=== PATIENT | male | born 1965 | race Two or more races ===

== ENCOUNTER 2023-01-24 09:58 | Inpatient (IN) | payer BC ==
[~2023-01-24] VITALS: Ht 167.6 cm; Wt 166.0 kg
[~2023-01-24 09:58] MED LIST: ASPI1TAB20 PO; ATOR10TA52 PO; LISI40TA11 PO; METF-370 PO; TRIA75TA66 PO
[2023-01-24 10:25] LABS: Basophils # (auto) 0.2 10 ^3/uL (0-0.2); Basophils % (auto) 1.1 % (0.0-2.0); Eosinophils # (auto) 0 10 ^3/uL (0-0.8); Eosinophils % (auto) 0.3 % (0.0-7.0); Hematocrit 47.1 % (41.0-53.0); Hemoglobin 15.6 g/dL (13.5-17.5); Lymphocytes # (auto) 2.4 10 ^3/uL (0.4-5.4); Lymphocytes % (auto) 14.2 % (10.0-50.0); Mean Corpuscular Hemoglobin 27.7 pg (28.0-32.0); Mean Corpuscular Hgb Conc. 33.1 g/dL (32.0-36.0); Mean Corpuscular Volume 83.6 fL (80.0-100.0); Monocytes # (auto) 0.6 10 ^3/uL (0-1.3); Monocytes % (auto) 3.7 % (0.0-12.0); Neutrophils # (auto) 13.4 10 ^3/uL (1.6-8.6); Neutrophils % (auto) 80.7 % (37.0-80.0); Nucleated Red Blood Cells % 0.2 %; Red Blood Cells 5.64 10^6/uL (4.5-5.90); Red Cell Distribution Width 14.1 % (11.8-14.3); White Blood Cell 16.6 10^3/uL (4.4-10.8)
[2023-01-24 10:41] LABS: Albumin 3.1 g/dL (3.4-5.0); Calcium 8.4 mg/dL (8.5-10.1); Potassium 3.5 mmol/L (3.5-5.1)
[2023-01-24 10:45] LABS: BUN/Creatinine Ratio 11.4 (10.0-20.0); Bilirubin, Total 0.2 mg/dL (0.2-1.0); Total Protein 8.1 g/dL (6.4-8.2)
[2023-01-24] MEDS ORDERED: SODIUM CHLORIDE 0.9% 1,000 ML IV ONE (11:30)
[2023-01-24] MEDS ORDERED: MORPHINE SULFATE 4 MG/ML SYR/VIAL IV ONE (11:30)
[2023-01-24] MEDS ORDERED: ONDANSETRON HCL 4 MG/2 ML VIAL IV ONE (11:30)
[2023-01-24] MEDS ORDERED: metroNIDAZOLE 500MG/100ML 100 ML IV ONE (11:45)
[2023-01-24] MEDS ORDERED: cefTRIAXone 1GM/50ML D5W 50 ML IV ONE (11:45)
[2023-01-24 12:15] LABS: Lactic Acid w/Reflex 2.2 mmol/L (0.4-2.0)
[2023-01-24] MEDS ORDERED: DEXTROSE (50%) 50ML SYRG IV PRN (14:15)
[2023-01-24] MEDS ORDERED: ACETAMINOPHEN 325 MG TAB PO PRN (14:15)
[2023-01-24] MEDS ORDERED: ONDANSETRON HCL 4 MG/2 ML VIAL IV PRN (14:15)
[2023-01-24] MEDS ORDERED: DOCUSATE SOD 100 MG CAP PO PRN (14:15)
[2023-01-24] MEDS ORDERED: NITROGLYCERIN 0.4 MG SL TAB SL PRN (14:15)
[2023-01-24] MEDS ORDERED: MORPHINE SULFATE INJ 2 MG/ml SYRG IV PRN (14:15)
[2023-01-24] MEDS: HYDROcodone-ACET 5/325MG TAB PO PRN ×2 (16:53→21:45)
[2023-01-24] MEDS: SODIUM CHLORIDE 0.9% 1,000 ML IV SCH (17:05)
[2023-01-24] MEDS: ACCU-CHEK COMFORT CURVE STRIP VI SCH ×2 (17:14→21:37)
[2023-01-24] MEDS: InsuLIN REG 1unit/0.01ml Soln (100units/ml) SC SCH ×2 (17:25→21:37)
[2023-01-24] MEDS: metroNIDAZOLE 500MG/100ML 100 ML IV SCH (21:43)
[2023-01-24] MEDS: ATORVASTATIN 20 MG TAB PO SCH (21:43)
[2023-01-25] VITALS (7 sets, daily range): BP systolic 126–161; BP diastolic 51–97
[2023-01-25] MEDS: metroNIDAZOLE 500MG/100ML 100 ML IV SCH ×3 (05:40→22:12)
[2023-01-25] MEDS: SODIUM CHLORIDE 0.9% 1,000 ML IV SCH ×2 (05:40→23:37)
[2023-01-25] MEDS: ACCU-CHEK COMFORT CURVE STRIP VI SCH ×6 (05:46→22:24)
[2023-01-25] MEDS: InsuLIN REG 1unit/0.01ml Soln (100units/ml) SC SCH ×4 (05:47→22:00)
[2023-01-25 05:48] LABS: Basophils # (auto) 0.1 10 ^3/uL (0-0.2); Basophils % (auto) 0.5 % (0.0-2.0); Eosinophils # (auto) 0.3 10 ^3/uL (0-0.8); Hematocrit 44.7 % (41.0-53.0); Hemoglobin 15.4 g/dL (13.5-17.5); Lymphocytes # (auto) 2.3 10 ^3/uL (0.4-5.4); Lymphocytes % (auto) 17.4 % (10.0-50.0); Mean Corpuscular Hemoglobin 28.7 pg (28.0-32.0); Mean Corpuscular Hgb Conc. 34.4 g/dL (32.0-36.0); Mean Corpuscular Volume 83.5 fL (80.0-100.0); Monocytes # (auto) 0.9 10 ^3/uL (0-1.3); Neutrophils # (auto) 9.6 10 ^3/uL (1.6-8.6); Neutrophils % (auto) 73.1 % (37.0-80.0); Nucleated Red Blood Cells % 0.3 %; Red Blood Cells 5.36 10^6/uL (4.5-5.90); Red Cell Distribution Width 14.3 % (11.8-14.3); White Blood Cell 13.2 10^3/uL (4.4-10.8)
[2023-01-25 06:31] LABS: Potassium 3.5 mmol/L (3.5-5.1)
[2023-01-25 06:40] LABS: Albumin 2.7 g/dL (3.4-5.0); BUN/Creatinine Ratio 11.9 (10.0-20.0); Bilirubin, Total 0.6 mg/dL (0.2-1.0); Calcium 8.2 mg/dL (8.5-10.1); Total Protein 7.2 g/dL (6.4-8.2)
[2023-01-25] MEDS: cefTRIAXone 1GM/50ML D5W 50 ML IV SCH (09:00)
[2023-01-25] MEDS: LISINOPRIL 20 MG TAB PO SCH (10:00)
[2023-01-25] MEDS: TRIAMTERENE/HCTZ 75/50MG TABLET PO SCH (10:00)
[2023-01-25] MEDS: PANTOPRAZOLE 40 MG/10 ML VIAL INJ IV SCH (10:11)
[2023-01-25] MEDS: ASPirin-EC 81 mg tab PO SCH (10:11)
[2023-01-25 15:42] LABS: INR 1.06 (0.9-1.15); Partial Thromboplastin Time 28.5 sec (24.6-33.4)
[2023-01-25] MEDS: ATORVASTATIN 20 MG TAB PO SCH (22:12)
[2023-01-26 00:43] VITALS: BP 157/82
[2023-01-26 05:00] VITALS: BP 144/60
[2023-01-26] MEDS: HYDROcodone-ACET 5/325MG TAB PO PRN (05:18)
[2023-01-26] MEDS: metroNIDAZOLE 500MG/100ML 100 ML IV SCH ×3 (05:18→21:31)
[2023-01-26] MEDS: ACCU-CHEK COMFORT CURVE STRIP VI SCH ×4 (05:20→21:19)
[2023-01-26] MEDS: InsuLIN REG 1unit/0.01ml Soln (100units/ml) SC SCH ×4 (05:21→21:20)
[2023-01-26 09:59] LABS: Hepatitis B Surface Antibody Negative (Negative)
[2023-01-26] MEDS: TRIAMTERENE/HCTZ 75/50MG TABLET PO SCH (10:00)
[2023-01-26] MEDS: cefTRIAXone 1GM/50ML D5W 50 ML IV SCH (10:04)
[2023-01-26] MEDS: PANTOPRAZOLE 40 MG/10 ML VIAL INJ IV SCH (10:04)
[2023-01-26 10:13] LABS: Hepatitis A Total Antibody Negative (Negative)
[2023-01-26 11:56] LABS: Hepatitis C Antibody Negative (Negative)
[2023-01-26] MEDS: ASPirin-EC 81 mg tab PO SCH (12:09)
[2023-01-26] MEDS: LISINOPRIL 20 MG TAB PO SCH (12:11)
[2023-01-26 13:00] VITALS: BP 115/60
[2023-01-26] MEDS: SODIUM CHLORIDE 0.9% 1,000 ML IV SCH (16:15)
[2023-01-26 17:00] VITALS: BP 114/58
[2023-01-26] MEDS ORDERED: MORPHINE SULFATE INJ 2 MG/ml SYRG IV ONE (21:15)
[2023-01-26] MEDS: ATORVASTATIN 20 MG TAB PO SCH (21:31)
[2023-01-26 21:51] VITALS: BP 120/60
[2023-01-27 02:34] LABS: Urine Bacteria NONE SEEN /hpf (None Seen); Urine Blood Negative /uL (Negative); Urine Hyaline Cast FEW /lpf (0 - 2); Urine Mucus FEW (None Seen); Urine Specific Gravity 1.026 (1.001-1.035); Urine WBC 2 /hpf (0 - 3)
[2023-01-27 05:00] VITALS: BP 103/47
[2023-01-27] MEDS: metroNIDAZOLE 500MG/100ML 100 ML IV SCH ×3 (05:14→20:36)
[2023-01-27] MEDS: ACCU-CHEK COMFORT CURVE STRIP VI SCH ×4 (06:12→22:13)
[2023-01-27] MEDS: InsuLIN REG 1unit/0.01ml Soln (100units/ml) SC SCH ×4 (06:12→22:00)
[2023-01-27] MEDS: SODIUM CHLORIDE 0.9% 1,000 ML IV SCH (08:55)
[2023-01-27 09:00] VITALS: BP 125/75
[2023-01-27] MEDS: ASPirin-EC 81 mg tab PO SCH (10:02)
[2023-01-27] MEDS: LISINOPRIL 20 MG TAB PO SCH (10:03)
[2023-01-27] MEDS: TRIAMTERENE/HCTZ 75/50MG TABLET PO SCH (10:39)
[2023-01-27] MEDS: cefTRIAXone 1GM/50ML D5W 50 ML IV SCH (10:58)
[2023-01-27] MEDS: PANTOPRAZOLE 40 MG/10 ML VIAL INJ IV SCH (10:59)
[2023-01-27 13:00] VITALS: BP 135/70
[2023-01-27 17:00] VITALS: BP 144/65
[2023-01-27] MEDS: ATORVASTATIN 20 MG TAB PO SCH (20:36)
[2023-01-27 22:00] VITALS: BP 115/64
[2023-01-28] MEDS: SODIUM CHLORIDE 0.9% 1,000 ML IV SCH ×3 (02:10→20:30)
[2023-01-28 05:00] VITALS: BP 117/73
[2023-01-28] MEDS: metroNIDAZOLE 500MG/100ML 100 ML IV SCH ×3 (05:31→22:19)
[2023-01-28] MEDS: ACCU-CHEK COMFORT CURVE STRIP VI SCH ×4 (05:52→22:09)
[2023-01-28] MEDS: InsuLIN REG 1unit/0.01ml Soln (100units/ml) SC SCH ×4 (05:52→22:14)
[2023-01-28 06:39] LABS: BUN/Creatinine Ratio 19.7 (10.0-20.0); Potassium 3.5 mmol/L (3.5-5.1)
[2023-01-28 06:46] LABS: Basophils # (auto) 0.1 10 ^3/uL (0-0.2); Basophils % (auto) 0.7 % (0.0-2.0); Eosinophils # (auto) 0.3 10 ^3/uL (0-0.8); Eosinophils % (auto) 2.3 % (0.0-7.0); Hematocrit 46.5 % (41.0-53.0); Hemoglobin 15.5 g/dL (13.5-17.5); Lymphocytes # (auto) 3.2 10 ^3/uL (0.4-5.4); Lymphocytes % (auto) 26.5 % (10.0-50.0); Mean Corpuscular Hemoglobin 28.6 pg (28.0-32.0); Mean Corpuscular Hgb Conc. 33.3 g/dL (32.0-36.0); Mean Corpuscular Volume 85.7 fL (80.0-100.0); Neutrophils # (auto) 7.5 10 ^3/uL (1.6-8.6); Neutrophils % (auto) 62.5 % (37.0-80.0); Nucleated Red Blood Cells % 0.7 %; Red Blood Cells 5.43 10^6/uL (4.5-5.90); Red Cell Distribution Width 14.5 % (11.8-14.3)
[2023-01-28 07:07] LABS: INR 1.16 (0.9-1.15); Partial Thromboplastin Time 29.9 sec (24.6-33.4)
[2023-01-28 08:30] VITALS: BP 132/70
[2023-01-28] MEDS: LISINOPRIL 20 MG TAB PO SCH (08:50)
[2023-01-28] MEDS: PANTOPRAZOLE 40 MG/10 ML VIAL INJ IV SCH (08:50)
[2023-01-28] MEDS: cefTRIAXone 1GM/50ML D5W 50 ML IV SCH (08:51)
[2023-01-28] MEDS: TRIAMTERENE/HCTZ 75/50MG TABLET PO SCH (08:51)
[2023-01-28] MEDS ORDERED: BUPIVACAINE 0.25% INJ 50ML VIAL ONE (09:12)
[2023-01-28] MEDS ORDERED: LIDOCAINE W/ EPINEPHRINE 1% 20ML VIAL ONE (09:12)
[2023-01-28] MEDS ORDERED: GLYCOPYRROLATE 0.2 MG/ML 1ML VIAL ONE (09:47)
[2023-01-28] MEDS ORDERED: fentaNYL CITRATE 100 MCG/2 ML VL ONE (09:47)
[2023-01-28] MEDS ORDERED: SODIUM CHLORIDE LOCK 10 ML ONE (09:47)
[2023-01-28] MEDS ORDERED: NEOSTIGMINE 1 MG/ML INJ (10mg/10ML VIAL) ONE (09:47)
[2023-01-28] MEDS ORDERED: PROPOFOL 10 MG/ML 20 ML IV ONE (09:47)
[2023-01-28] MEDS ORDERED: ROCURONIUM 10MG/ML 10ML VIAL IV ONE (09:47)
[2023-01-28] MEDS ORDERED: MIDAZOLAM HCL 2MG/2ML 2ml VIAL (1mg/ml) ONE (09:47)
[2023-01-28] MEDS ORDERED: DexAMETHasone SOD PHOS 10MG/1ML VIAL INJ ONE (09:47)
[2023-01-28] MEDS: ASPirin-EC 81 mg tab PO SCH (10:00)
[2023-01-28] MEDS ORDERED: SUGAMMADEX 200mg/2ml Vial (100MG/ML) IV ONE (10:48)
[2023-01-28] MEDS ORDERED: BACITRACIN TOP OINT 1 UD PKG TOP ONE (10:49)
[2023-01-28] MEDS: HYDROcodone-ACET 5/325MG TAB PO PRN (11:23)
[2023-01-28] MEDS ORDERED: MORPHINE SULFATE INJ 2 MG/ml SYRG IV ONE (11:31)
[2023-01-28] MEDS ORDERED: SUCCINYLCHOLINE CHLORIDE 20 MG/ML 10ML VIAL IV ONE (11:34)
[2023-01-28 16:50] VITALS: BP 84/29
[2023-01-28 21:15] LABS: Hematocrit 43.2 % (41.0-53.0); Hemoglobin 14.1 g/dL (13.5-17.5)
[2023-01-28 22:00] VITALS: BP 96/61
[2023-01-28] MEDS: ATORVASTATIN 20 MG TAB PO SCH (22:18)
[2023-01-28 23:00] VITALS: BP 97/59
[2023-01-29] VITALS: BP 95/50
[2023-01-29 05:00] VITALS: BP 109/68
[2023-01-29] MEDS: ACCU-CHEK COMFORT CURVE STRIP VI SCH ×4 (06:00→22:00)
[2023-01-29] MEDS: metroNIDAZOLE 500MG/100ML 100 ML IV SCH ×3 (06:00→22:00)
[2023-01-29] MEDS: InsuLIN REG 1unit/0.01ml Soln (100units/ml) SC SCH ×4 (06:02→22:00)
[2023-01-29 07:01] LABS: Hematocrit 37.8 % (41.0-53.0); Hemoglobin 12.8 g/dL (13.5-17.5); Mean Corpuscular Volume 85.3 fL (80.0-100.0); Red Blood Cells 4.43 10^6/uL (4.5-5.90); Red Cell Distribution Width 14.4 % (11.8-14.3); White Blood Cell 17.3 10^3/uL (4.4-10.8)
[2023-01-29 07:32] LABS: Basophils % (manual) 0 (0.0-2.0); Blast Cells 0; Eosinophils % (manual) 0 (0-7); Metamyelocytes % 0; Myelocytes % 0; Promyelocytes % 0; Reactive Lymphocytes 0
[2023-01-29 08:46] LABS: Band Neutrophils % (manual) 10; Lymphocytes % (manual) 22 (10.0-50.0); Monocytes % (manual) 7 (0-12)
[2023-01-29 09:00] VITALS: BP 92/52
[2023-01-29] MEDS: cefTRIAXone 1GM/50ML D5W 50 ML IV SCH ×2 (09:30→11:34)
[2023-01-29] MEDS ORDERED: ENOXAPARIN SOD 30 MG/0.3 ML SYRINGE SC SCH (10:00)
[2023-01-29] MEDS: LISINOPRIL 20 MG TAB PO SCH (10:00)
[2023-01-29] MEDS: TRIAMTERENE/HCTZ 75/50MG TABLET PO SCH (10:00)
[2023-01-29] MEDS: SODIUM CHLORIDE 0.9% 1,000 ML IV SCH ×2 (10:30→23:50)
[2023-01-29] MEDS ORDERED: SODIUM CHLORIDE 0.9% 1,000 ML IV ONE (10:30)
[2023-01-29] MEDS ORDERED: TAMSULOSIN HYDROCHLORIDE 0.4 MG CAP PO ONE (10:30)
[2023-01-29] MEDS: TAMSULOSIN HYDROCHLORIDE 0.4 MG CAP PO SCH (10:48)
[2023-01-29] MEDS: PANTOPRAZOLE 40 MG/10 ML VIAL INJ IV SCH (11:31)
[2023-01-29] MEDS: ASPirin-EC 81 mg tab PO SCH (11:33)
[2023-01-29 14:24] VITALS: BP 90/41
[2023-01-29 16:56] VITALS: BP 90/49
[2023-01-29 22:00] VITALS: BP 95/34
[2023-01-29] MEDS: ATORVASTATIN 20 MG TAB PO SCH (22:00)
[2023-01-30 05:44] VITALS: BP 118/83
[2023-01-30] MEDS: metroNIDAZOLE 500MG/100ML 100 ML IV SCH ×3 (06:00→22:15)
[2023-01-30 06:25] LABS: Basophils # (auto) 0.1 10 ^3/uL (0-0.2); Basophils % (auto) 0.6 % (0.0-2.0); Eosinophils # (auto) 0.1 10 ^3/uL (0-0.8); Eosinophils % (auto) 0.7 % (0.0-7.0); Hematocrit 35.1 % (41.0-53.0); Hemoglobin 11.6 g/dL (13.5-17.5); Lymphocytes # (auto) 2.7 10 ^3/uL (0.4-5.4); Lymphocytes % (auto) 20.7 % (10.0-50.0); Mean Corpuscular Hemoglobin 28.9 pg (28.0-32.0); Mean Corpuscular Hgb Conc. 32.9 g/dL (32.0-36.0); Mean Corpuscular Volume 87.6 fL (80.0-100.0); Monocytes # (auto) 1.2 10 ^3/uL (0-1.3); Monocytes % (auto) 9.1 % (0.0-12.0); Neutrophils # (auto) 8.8 10 ^3/uL (1.6-8.6); Neutrophils % (auto) 68.9 % (37.0-80.0); Nucleated Red Blood Cells % 0.1 %; Red Cell Distribution Width 14.8 % (11.8-14.3); White Blood Cell 12.8 10^3/uL (4.4-10.8)
[2023-01-30] MEDS: InsuLIN REG 1unit/0.01ml Soln (100units/ml) SC SCH ×4 (06:26→22:00)
[2023-01-30] MEDS: SODIUM CHLORIDE 0.9% 1,000 ML IV SCH ×3 (06:30→18:08)
[2023-01-30 06:38] LABS: Potassium 3.4 mmol/L (3.5-5.1)
[2023-01-30] MEDS: ACCU-CHEK COMFORT CURVE STRIP VI SCH ×4 (07:00→22:22)
[2023-01-30 07:01] LABS: Albumin 2.6 g/dL (3.4-5.0); BUN/Creatinine Ratio 15.2 (10.0-20.0); Bilirubin, Total 0.4 mg/dL (0.2-1.0); Calcium 8.2 mg/dL (8.5-10.1); Total Protein 6.7 g/dL (6.4-8.2)
[2023-01-30 09:00] VITALS: BP 115/70
[2023-01-30] MEDS: ASPirin-EC 81 mg tab PO SCH (09:58)
[2023-01-30] MEDS: ENOXAPARIN SOD 40 MG/0.4 ML SYRINGE SC SCH (09:59)
[2023-01-30] MEDS: PANTOPRAZOLE 40 MG/10 ML VIAL INJ IV SCH (09:59)
[2023-01-30] MEDS: LISINOPRIL 20 MG TAB PO SCH (10:00)
[2023-01-30] MEDS: TRIAMTERENE/HCTZ 75/50MG TABLET PO SCH (10:00)
[2023-01-30] MEDS: cefTRIAXone 1GM/50ML D5W 50 ML IV SCH (10:00)
[2023-01-30] MEDS: SODIUM BICARBONATE 50ML VIAL 50 ML in SOD CHL 0.45% 1,000 ML IV SCH ×2 (12:11→18:30)
[2023-01-30 13:00] VITALS: BP 117/74
[2023-01-30] MEDS: HYDROcodone-ACET 5/325MG TAB PO PRN (13:48)
[2023-01-30 16:43] VITALS: BP 101/50
[2023-01-30 17:14] LABS: Creatinine, Urine 236 mg/dL (30.0-125.0); Sodium Urine 86 mmol/L (40-220)
[2023-01-30 17:15] LABS: Urine Bacteria NONE SEEN /hpf (None Seen); Urine Blood TRACE /uL (Negative); Urine Mucus FEW (None Seen); Urine Specific Gravity 1.021 (1.001-1.035); Urine WBC 4 /hpf (0 - 3)
[2023-01-30 17:16] LABS: Protein, Urine 49.5 mg/dL (0.0-11.9)
[2023-01-30] MEDS ORDERED: POTASSIUM CHL 20 Meq TABLET PO ONE (18:00)
[2023-01-30] MEDS: TAMSULOSIN HYDROCHLORIDE 0.4 MG CAP PO SCH (18:07)
[2023-01-30 22:00] VITALS: BP 100/58
[2023-01-30] MEDS: ATORVASTATIN 20 MG TAB PO SCH (22:15)
[2023-01-31] MEDS: SODIUM BICARBONATE 50ML VIAL 50 ML in SOD CHL 0.45% 1,000 ML IV SCH ×2 (02:01→08:30)
[2023-01-31] MEDS: SODIUM CHLORIDE 0.9% 1,000 ML IV SCH ×2 (02:30→10:22)
[2023-01-31 05:00] VITALS: BP 110/90
[2023-01-31] MEDS: metroNIDAZOLE 500MG/100ML 100 ML IV SCH ×2 (05:30→13:30)
[2023-01-31] MEDS: InsuLIN REG 1unit/0.01ml Soln (100units/ml) SC SCH ×2 (06:23→11:30)
[2023-01-31] MEDS: ACCU-CHEK COMFORT CURVE STRIP VI SCH ×2 (06:24→11:30)
[2023-01-31 07:23] LABS: Basophils # (auto) 0.1 10 ^3/uL (0-0.2); Basophils % (auto) 0.5 % (0.0-2.0); Eosinophils # (auto) 0.2 10 ^3/uL (0-0.8); Eosinophils % (auto) 1.7 % (0.0-7.0); Lymphocytes # (auto) 2.3 10 ^3/uL (0.4-5.4); Lymphocytes % (auto) 24.4 % (10.0-50.0); Mean Corpuscular Hemoglobin 28.2 pg (28.0-32.0); Mean Corpuscular Hgb Conc. 34.2 g/dL (32.0-36.0); Mean Corpuscular Volume 82.3 fL (80.0-100.0); Monocytes # (auto) 0.8 10 ^3/uL (0-1.3); Monocytes % (auto) 8.2 % (0.0-12.0); Neutrophils % (auto) 65.2 % (37.0-80.0); Nucleated Red Blood Cells % 0.1 %; Red Blood Cells 4.25 10^6/uL (4.5-5.90); Red Cell Distribution Width 14.3 % (11.8-14.3); White Blood Cell 9.3 10^3/uL (4.4-10.8)
[2023-01-31 07:45] LABS: Albumin 2.3 g/dL (3.4-5.0); Potassium 3.6 mmol/L (3.5-5.1)
[2023-01-31 07:48] LABS: BUN/Creatinine Ratio 18.6 (10.0-20.0); Bilirubin, Total 0.3 mg/dL (0.2-1.0); Total Protein 6.2 g/dL (6.4-8.2)
[2023-01-31 08:00] VITALS: BP 113/59
[2023-01-31 08:50] VITALS: BP 113/59
[2023-01-31] MEDS ORDERED: METR500T PO (10:00)
[2023-01-31] MEDS ORDERED: LEVO750T8 PO (10:00)
[2023-01-31] MEDS ORDERED: HYDR-4902 PO (10:00)
[2023-01-31] MEDS: PANTOPRAZOLE 40 MG/10 ML VIAL INJ IV SCH (10:02)
[2023-01-31] MEDS: ENOXAPARIN SOD 40 MG/0.4 ML SYRINGE SC SCH (10:03)
[2023-01-31] MEDS: cefTRIAXone 1GM/50ML D5W 50 ML IV SCH (10:04)
[2023-01-31] MEDS: ASPirin-EC 81 mg tab PO SCH (10:04)
[2023-01-31 12:02] VITALS: BP 113/59
[2023-01-31] MEDS ORDERED: POTASSIUM CHL 20MEQ/100ML 100 ML IV SCH (12:30)
[2023-01-31 13:08] VITALS: BP 125/56
== END 2023-01-31 15:00 | disposition home or self-care (01) | DRG 417 ==
LOC: ER 09:58 → TELE 14:10 → TELE-WESTW 23:03
PROVIDERS: ADMIT Nurse Practitioner Family; ATTEND Family Medicine
PROC: 5A09357 Assistance with Respiratory Ventilation, Less than 24 Consecutive Hours, Continuous Positive Airway Pressure (ICD-10-PCS; 2023-01-25)
PROC: 0FT44ZZ Resection of Gallbladder, Percutaneous Endoscopic Approach (ICD-10-PCS; principal; 2023-01-28 09:59)
DX: K80.13 Calculus of gallbladder with acute and chronic cholecystitis with obstruction (principal); J96.01 Acute respiratory failure with hypoxia; E44.1 Mild protein-calorie malnutrition; Z68.43 Body mass index [BMI] 50.0-59.9, adult; E87.20 Acidosis, unspecified; N17.9 Acute kidney failure, unspecified; E11.9 Type 2 diabetes mellitus without complications; E66.01 Morbid (severe) obesity due to excess calories; I10 Essential (primary) hypertension; K59.00 Constipation, unspecified; K76.0 Fatty (change of) liver, not elsewhere classified; K76.89 Other specified diseases of liver; D64.9 Anemia, unspecified; J44.9 Chronic obstructive pulmonary disease, unspecified; N40.0 Benign prostatic hyperplasia without lower urinary tract symptoms; N99.0 Postprocedural (acute) (chronic) kidney failure; Z20.822 Contact with and (suspected) exposure to COVID-19; E78.5 Hyperlipidemia, unspecified; N20.0 Calculus of kidney; Z79.82 Long term (current) use of aspirin; Z79.899 Other long term (current) drug therapy; Z82.49 Family history of ischemic heart disease and other diseases of the circulatory system; Z87.442 Personal history of urinary calculi
CPT/HCPCS: 36415; 71045; 71250; 74176; 76705; 76775; 78226; 78582; 80048; 80053; 81001; 82105; 82150; 82247; 82306; 82378; 82570; 82962; 83605; 83690; 83970; 84100; 84156; 84300; 84484; 85007; 85014; 85018; 85025; 85027; 85610; 85730; 86301; 86704; 86706; 86708; 86803; 86850; 86900; 86901; 87040; 87340; 87426; 93005; 93306; 93970; 94660; 96365; 96367; 96375; 97163; C9113; G0378; J0330; J0696; J1100; J1815; J2250; J2405; J2704; J3490

== ENCOUNTER 2025-04-11 00:47 | Inpatient (IN) | payer BC ==
[~2025-04-11] VITALS: Ht 167.6 cm; Wt 151.7 kg
[2025-04-11] VITALS (7 sets, daily range): BP systolic 106–162; BP diastolic 56–74; PULSE 83–106; RESP 18; TEMP 96.1–99.3; O2SAT 94–97
[~2025-04-11 00:47] MED LIST changes: +HYDR-4902 PO; +LEVO750T8 PO; -LISI40TA11 PO; +LISI40TA16 PO; +METR500T PO
--- NOTE | 2025-04-11 01:28 | ED.PDOC ---
History of Present Illness HPI Comments 59-year-old morbidly obese male presents with complaint of urinary urgency, hematuria, and dysuria. Patient reports onset of symptoms at around 2100, last night. He states on, first, having urge to urinate and noticing small droplets of blood, initially. Patient then endorses on he a stream of dark urine and then bright red blood with associated dysuria during 2nd and 3rd time going to the bathroom. He reports history of UTIs, kidney stones, BPH, hypertension, and diabetes. Patient denies having any additional urinary symptoms, abdominal pain, nausea, vomiting, fever, chills, lightheadedness, or further associated symptoms. Chief Complaint: Urinary Time Seen by MD: 01:20 Primary Care Provider: NONE Reviewed Notes: Nurses Notes, Medications, Allergies Allergies: Coded Allergies: NO KNOWN ALLERGIES (Unverified , 01/24/23) Home Meds Active Scripts Hydrocodone-Acetaminophen (Hydrocodone Bitartrate/AC 5-325 mg) 1 Tab Tab, 1 TAB PO TID PRN, #20 TAB Prov:SABINE BECERRA MD 01/31/23 Metronidazole (Flagyl) 500 Mg Tab, 500 MG PO TID, #30 TAB Prov:SABINE BECERRA MD 01/31/23 Levofloxacin (Levaquin 750 mg) 750 Mg Tab, 1 TAB PO DAILY, #10 TAB Prov:SABINE BECERRA MD 01/31/23 Reported Medications Aspirin (Aspir-81) 81 Mg Tab, 81 MG PO DAILY, TAB 08/24/15 Hydrochlorothiazide W/Triamter (Triamterene/Hydrochloroth) 1 Tab Tab, 1 TAB PO DAILY, TAB 08/24/15 Metformin Hydrochloride (Metformin Hcl) 500 Mg Tab, 500 MG PO BID, TAB 08/24/15 Lisinopril (Lisinopril) 40 Mg Tab, 40 MG PO DAILY for me, TAB 08/24/15 Atorvastatin Calcium (ATORVASTATIN CALCIUM) 10 Mg Tab, 10 MG PO HS, TAB 08/24/15 Information Source: Patient Mode of Arrival: Ambulatory Severity: Moderate Timing: Hours Duration: Since onset Prehospital treatment: None Past Medical History PAST MEDICAL HISTORY: DM, HTN, Kidney Stones, UTI'S Past Medical History (Other): BPH Morbid obesity Surgical History: Cholecystectomy Family History Family History: Reviewed,noncontributory to illness Social History Smoker: Non-Smoker Alcohol: Denies ETOH Use Drugs: Denies Drug Use Lives In: Home All Other Systems: Reviewed and Negative (Comprehensive systems review obtained and negative except for what is stated in the HPI.) Physical Exam General Appearance: No Apparent Distress, Obese HEENT: Normal ENT Inspection, Pharynx Normal, TMs Normal Neck: Full Range of Motion, Non-Tender, Normal, Normal Inspection Respiratory: Chest Non-Tender, Lungs Clear, No Accessory Muscle Use, No Respiratory Distress, Normal Breath Sounds Cardiovascular: No Edema, No JVD, No Murmur, No Gallop, Normal Peripheral Pulses, Regular Rate/Rhythm Breast Exam: Deferred Gastrointestinal: No Organomegaly, Non Tender, No Pulsatile Mass, Normal Bowel Sounds, Soft Genitalia: Deferred Pelvic: Deferred Rectal: Deferred Extremities: No calf tenderness, Normal capillary refill, Normal inspection, Normal range of motion, Non-tender, No pedal edema Musculoskeletal : Apperance: Normal Neurologic: Alert, vascular technologist sonographer II-XII nml as Tested, No Motor Deficits, Normal Affect, Normal Mood, No Sensory Deficits Cerebellar Function: Normal Reflexes: Normal Skin: Dry, Normal Color, Warm Lymphatic: No Adenopathy Was a procedure done? Was a procedure done?: No Differential Dx Considerations may include: UTI, nephrolithiasis, epididymitis, urethral obstruction, anemia, among others X-Ray, Labs, Meds, VS Vital Signs Date Time Temp Pulse Resp B/P (MAP) Pulse Ox O2 Delivery O2 Flow Rate FiO2 04/11/25 01:06 98.0 91 20 120/89 (99) 96 98.0 Lab Test 04/11/25 01:46 04/11/25 01:15 Range/Units White Blood Count 19.2 H 4.4-10.8 10^3/uL Red Blood Count 5.27 4.5-5.90 10^6/uL Hemoglobin 14.9 13.5-17.5 g/dL Hematocrit 44.7 41.0-53.0 % Mean Corpuscular Volume 84.8 80.0-100.0 fL Mean Corpuscular Hemoglobin 28.3 28.0-32.0 pg Mean Corpuscular Hemoglobin Concent 33.3 32.0-36.0 g/dL Red Cell Distribution Width 15.4 H 11.8-14.3 % Platelet Count 320 140-450 10^3/uL Mean Platelet Volume 8.6 6.9-10.8 fL Neutrophils (%) (Auto) 80.6 H 37.0-80.0 % Lymphocytes (%) (Auto) 12.8 10.0-50.0 % Monocytes (%) (Auto) 4.6 0.0-12.0 % Eosinophils (%) (Auto) 1.2 0.0-7.0 % Basophils (%) (Auto) 0.8 0.0-2.0 % Neutrophils # (Auto) 15.5 H 1.6-8.6 10 ^3/uL Lymphocytes # (Auto) 2.5 0.4-5.4 10 ^3/uL Monocytes # (Auto) 0.9 0-1.3 10 ^3/uL Eosinophils # (Auto) 0.2 0-0.8 10 ^3/uL Basophils # (Auto) 0.2 0-0.2 10 ^3/uL Nucleated Red Blood Cells 0.0 % Sodium Level Pending Potassium Level Pending Chloride Level Pending Carbon Dioxide Level Pending Anion Gap Pending Blood Urea Nitrogen Pending Creatinine Pending Glomerular Filtration Rate Calc Pending BUN/Creatinine Ratio Pending Serum Glucose Pending Calcium Level Pending Urine Color Red H Yellow Urine Clarity Ex.turbid Clear Urine pH 7.0 5.0-9.0 Urine Specific [place] 1.023 1.001-1.035 Urine Protein 3+ H Negative Urine Ketones Negative Negative Urine Blood 3+ H Negative /uL Urine Nitrite Negative Negative Urine Bilirubin Negative Negative Urine Urobilinogen Normal Negative mg/dL Urine Leukocyte Esterase 2+ Negative /uL Urine RBC 9611 0 - 3 /hpf Urine Microscopic WBC 290 H 0-3 /HPF Urine Squamous Epithelial Cells None seen <5 /hpf Urine Bacteria None seen None Seen /hpf Urine Glucose Trace Normal mg/dL Time of 1ST Reevaluation: 01:50 Reevaluation 1ST: Unchanged Patient Education/Counseling: Treatment Family Education/Counseling: No Family Present Additional Information Previous visits reviewed: January 24, 2023 for acute abdominal pain The following tests were ordered, and results were reviewed by me: CT abdomen and pelvis without contrast, UA, CBC, BMP Additional Information was gathered from interviewing the following independent historians: N/A I reviewed and agreed with the following test results read by other providers: CT abdomen and pelvis without contrast I discussed treatment and results with medical personnel and: patient SEPSIS Sepsis Screen Physician Orders Basic Metabolic Panel (04/11/25 01:22) Ct Ab Pel Wo Con-No Oral Or Iv (04/11/25 01:22) Vital Signs Date Time Temp Pulse Resp B/P (MAP) Pulse Ox O2 Delivery O2 Flow Rate FiO2 04/11/25 01:06 98.0 91 20 120/89 (99) 96 98.0 Laboratory Tests Test 04/11/25 01:46 White Blood Count 19.2 10^3/uL (4.4-10.8) H Departure 1 Departure Time of Disposition: 02:22 (Patient presented with hematuria that was concerning for possible appendicits, gastritis, cholecystitis, colitis, gastroenteritis, sbo, or orther possible surgical emergency. Data: 1. I ordered and reviewed the result of at least 3 labs including a CBC, BMP, and Urinalysis. 2. I independently interpreted the following tests: CT Abdoment and Pelvis is concerning for acute pyelonephritis .Risk:This patient has a high risk of morbidity due to further diagnostic testing or treatment and may suffer from an acute abdominal process disorder. Workup reveals keep pyelonephritis and patient should be admitted for further workup. and possible expert consultation. ) Impression: Primary Impression: Acute pyelonephritis Additional Impression: Hematuria Qualified Codes: R31.0 - Gross hematuria Disposition: ADMITTED INPATIENT Admit to: Med Surg Condition: Serious Critical Care Note Critical Care Time?: No Stability Stability form required: No Heart Score Heart Score: Heart Score Response (Comments) Value History N/A 0 EKG N/A 0 Age N/A 0 Risk Factors N/A 0 Troponin N/A 0 Total 0 I personally scribed for MALLORY LOCKE MD ([email or web address]) on 04/11/25 at 01:28. Electronically submitted by Pablo Santiago ([email or web address]). MALLORY LOCKE MD Apr 11, 2025 01:28
--- NOTE | 2025-04-11 02:01 | DVH ---
Exam: CT CT AB PEL WO CON-NO ORAL OR IV History: hematuria Comparison Study: CT CT AB PEL WO CON-NO ORAL OR IV on DOS: 01/24/23 Technique: Multidetector spiral CT of the abdomen was performed from lung bases to pubic symphysis. I maging was performed without IV contrast. Axial, coronal and sagittal multiplanar reformats were obta ined from the axial data set by the technologist. Radiation Dose : 1. Abdomen/Pelvis: CTDIvol 27.88 mGy, DLP 1560.67 mGy*cm. Findings: Evaluation of solid organs is limited due to lack of intravenous contrast use. Lung Bases: No acute or significant lung base finding. Normal heart size. No pleural or pericardial effusion. Liver: The liver is normal in size. Benign-appearing hepatic cysts measure up to 2.7 cm. No focal le sions. Gallbladder and Biliary Tree: Status post cholecystectomy. Spleen: Unremarkable Pancreas: The pancreas is grossly normal in appearance. Adrenal Glands: Unremarkable Kidneys: Right interpolar nonobstructing pelvocaliceal calculus measures approximately 5 mm. Kidneys are otherwise grossly normal without hydronephrosis. Bladder: Grossly unremarkable for degree of distention. Bowel: The stomach is grossly normal in appearance. Small bowel and colon are normal in caliber and d istribution. The appendix is not visualized; however, no secondary findings of acute appendicitis belem ntified. Ascites: Absent Lymphadenopathy: No mesenteric, retroperitoneal or periportal lymphadenopathy. Abdominal Wall and Mesentery: Unremarkable. Vasculature: The visualized abdominal aorta is normal in size and caliber. Evaluation of abdominal a nd pelvic vessels is limited due to lack of intravenous contrast. Pelvic Organs: Unremarkable. Bilateral fat containing inguinal hernias. Musculoskeletal: No aggressive focal bony lesions, acute fractures or dislocation. IMPRESSION: 1. No acute abdominal or pelvic findings. 2. Nonobstructive right nephrolithiasis. Radiation optimization: All CT scans at this facility use at least one of these dose optimization hilary hniques: automated exposure control mA and/or kV adjustment per patient size (includes targeted exam s where dose is matched to clinical indication) or iterative reconstruction.
[2025-04-11 02:07] LABS: Urine Bacteria None Seen /hpf (None Seen)
[2025-04-11 02:11] LABS: Basophils # (auto) 0.2 10 ^3/uL (0-0.2); Basophils % (auto) 0.8 % (0.0-2.0); Eosinophils # (auto) 0.2 10 ^3/uL (0-0.8); Eosinophils % (auto) 1.2 % (0.0-7.0); Hematocrit 44.7 % (41.0-53.0); Hemoglobin 14.9 g/dL (13.5-17.5); Lymphocytes # (auto) 2.5 10 ^3/uL (0.4-5.4); Lymphocytes % (auto) 12.8 % (10.0-50.0); Mean Corpuscular Hemoglobin 28.3 pg (28.0-32.0); Mean Corpuscular Hgb Conc. 33.3 g/dL (32.0-36.0); Mean Corpuscular Volume 84.8 fL (80.0-100.0); Monocytes # (auto) 0.9 10 ^3/uL (0-1.3); Monocytes % (auto) 4.6 % (0.0-12.0); Neutrophils # (auto) 15.5 10 ^3/uL (1.6-8.6); Neutrophils % (auto) 80.6 % (37.0-80.0); Platelet Count (auto) 320 10^3/uL (140-450); Red Blood Cells 5.27 10^6/uL (4.5-5.90); Red Cell Distribution Width 15.4 % (11.8-14.3); White Blood Cell 19.2 10^3/uL (4.4-10.8)
[2025-04-11 02:17] LABS: Urine Blood 3+ /uL (Negative); Urine Clarity Ex.Turbid (Clear); Urine Color Red (Yellow); Urine Protein, UAD 3+ (Negative); Urine Specific Gravity 1.023 (1.001-1.035); Urine Squamous Epithelial Cell None Seen /hpf (<5); Urine Urobilinogen Normal (Negative); Urine WBC 290 /HPF (0-3)
[2025-04-11 02:23] LABS: Chloride 106 mmol/L (98-107); Potassium 4.4 mmol/L (3.5-5.1); Sodium 139 mmol/L (136-145)
[2025-04-11 02:24] LABS: Anion Gap 8 (5-15); Carbon Dioxide 25 mmol/L (20-31)
[2025-04-11 02:29] LABS: BUN/Creatinine Ratio 13.4 (10.0-20.0); Blood Urea Nitrogen 13 mg/dL (9-23)
[2025-04-11 02:39] LABS: Glucose 123 mg/dL (74-106)
[2025-04-11] MEDS ORDERED: ACETAMINOPHEN 325 MG TAB PO PRN (03:15)
[2025-04-11] MEDS ORDERED: HYDROcodone-ACET 5/325MG TAB PO PRN (03:15)
[2025-04-11] MEDS ORDERED: DEXTROSE (50%) 50ML SYRG IV PRN ×2 (03:15→16:45)
[2025-04-11] MEDS ORDERED: ONDANSETRON HCL 4 MG/2 ML VIAL IV PRN (03:15)
[2025-04-11] MEDS: SODIUM CHLORIDE 0.9% 2,000 ML IV ONE (04:38)
[2025-04-11] MEDS: CEFEPIME 2GM/50ML NS 50 ML IV ONE (04:38)
--- NOTE | 2025-04-11 04:57 | DVHHP2 ---
History of Present Illness Reason for Visit: Bloody urine History of Present Illness 59-year-old male presents for evaluation of bloody urine. Patient reports developing last night bloody urine. Reports dysuria with lower abdominal pain. States having some chills as well. Denies nausea or vomiting. No cardiac or respiratory complaints. Past Medical History BPH, hypertension, kidney stones, diabetes mellitus Past Surgical History Cholecystectomy Family History Noncontributory Smoke: No ALCOHOL: none Drugs: None Lives: with Family Review of Systems Review of Systems Review of systems are currently negative otherwise addressed in HPI. Allergies: Coded Allergies: NO KNOWN ALLERGIES (Unverified , 01/24/23) Medications Current Medications Medications Dose Ordered Sig/Gillian Route Start Time Stop Time Status Last Admin Dose Admin Lisinopril 20 mg DAILY PO 04/11/25 10:00 Atorvastatin Calcium 10 mg HS PO 04/11/25 22:00 Tamsulosin HCl 0.4 mg QPM PO 04/11/25 18:00 Diagnostic Test (Pha) 1 strip ACHS 04/11/25 07:00 Insulin Human Regular ACHS SC 04/11/25 07:00 Dextrose 50 ml UD PRN IV 04/11/25 03:15 Acetaminophen/ Hydrocodone Bitart 1 tab Q4HP PRN PO 04/11/25 03:15 Ondansetron HCl 4 mg Q4HP PRN IV 04/11/25 03:15 Acetaminophen 650 mg Q6HP PRN PO 04/11/25 03:15 Exam Vital Signs Vital Signs Date Time Temp Pulse Resp B/P (MAP) Pulse Ox O2 Delivery O2 Flow Rate FiO2 04/11/25 04:31 98.5 106 18 127/87 (100) 95 98.5 Exam Gen: 59-year-old male in mild distress, morbidly obese Skin: Warm, dry, normal color and texture, no rash. HEENT: Normocephalic atraumatic, mucous membranes moist and pink. Neck: Cervical and supraclavicular nodes normal without enlargement, trachea is midline, thyroid gland is normal without masses. Pulmonary: Clear to auscultation and percussion bilaterally. Cardiac: Regular rate and rhythm. No murmur Abdomen: Soft, nontender, nondistended, bowel sounds present all 4 quadrants, no guarding, no rigidity, no organomegaly. Extremities: No cyanosis, clubbing, no edema Neuro: Cranial nerves II through XII grossly intact, normal affect and speech, no focal motor deficits. Labs/Xrays ORDERING PHYSICIAN: MALLORY LOCKE MD PROCEDURE(s): ABPL - CT AB PEL WO CON-NO ORAL OR IV REASON: hematuria ORDER NUMBER(s): [id number], ACCESSION NUMBER(s): [id number] Exam: CT CT AB PEL WO CON-NO ORAL OR IV History: hematuria Comparison Study: CT CT AB PEL WO CON-NO ORAL OR IV on DOS: 01/24/23 Technique: Multidetector spiral CT of the abdomen was performed from lung bases to pubic symphysis. Imaging was performed without IV contrast. Axial, coronal and sagittal multiplanar reformats were obtained from the axial data set by the technologist. Radiation Dose : 1. Abdomen/Pelvis: CTDIvol 27.88 mGy, DLP 1560.67 mGy*cm. Findings: Evaluation of solid organs is limited due to lack of intravenous contrast use. Lung Bases: No acute or significant lung base finding. Normal heart size. No pleural or pericardial effusion. Liver: The liver is normal in size. Benign-appearing hepatic cysts measure up to 2.7 cm. No focal lesions. Gallbladder and Biliary Tree: Status post cholecystectomy. Spleen: Unremarkable Pancreas: The pancreas is grossly normal in appearance. Adrenal Glands: Unremarkable Kidneys: Right interpolar nonobstructing pelvocaliceal calculus measures approximately 5 mm. Kidneys are otherwise grossly normal without hydronephrosis. Bladder: Grossly unremarkable for degree of distention. Bowel: The stomach is grossly normal in appearance. Small bowel and colon are normal in caliber and distribution. The appendix is not visualized; however, no secondary findings of acute appendicitis identified. Ascites: Absent Lymphadenopathy: No mesenteric, retroperitoneal or periportal lymphadenopathy. Abdominal Wall and Mesentery: Unremarkable. Vasculature: The visualized abdominal aorta is normal in size and caliber. Evaluation of abdominal and pelvic vessels is limited due to lack of intravenous contrast. Pelvic Organs: Unremarkable. Bilateral fat containing inguinal hernias. Musculoskeletal: No aggressive focal bony lesions, acute fractures or d islocation. IMPRESSION: 1. No acute abdominal or pelvic findings. 2. Nonobstructive right nephrolithiasis. Radiation optimization: All CT scans at this facility use at least one of these dose optimization techniques: automated exposure control mA and/or kV adjustment per patient size (includes targeted exams where dose is matched to clinical indication) or iterative reconstruction. Labs Test 04/11/25 02:39 04/11/25 01:46 04/11/25 01:15 Range/Units Lactic Acid Level 1.5 0.4-2.0 mmol/L White Blood Count 19.2 H 4.4-10.8 10^3/uL Red Blood Count 5.27 4.5-5.90 10^6/uL Hemoglobin 14.9 13.5-17.5 g/dL Hematocrit 44.7 41.0-53.0 % Mean Corpuscular Volume 84.8 80.0-100.0 fL Mean Corpuscular Hemoglobin 28.3 28.0-32.0 pg Mean Corpuscular Hemoglobin Concent 33.3 32.0-36.0 g/dL Red Cell Distribution Width 15.4 H 11.8-14.3 % Platelet Count 320 140-450 10^3/uL Mean Platelet Volume 8.6 6.9-10.8 fL Neutrophils (%) (Auto) 80.6 H 37.0-80.0 % Lymphocytes (%) (Auto) 12.8 10.0-50.0 % Monocytes (%) (Auto) 4.6 0.0-12.0 % Eosinophils (%) (Auto) 1.2 0.0-7.0 % Basophils (%) (Auto) 0.8 0.0-2.0 % Neutrophils # (Auto) 15.5 H 1.6-8.6 10 ^3/uL Lymphocytes # (Auto) 2.5 0.4-5.4 10 ^3/uL Monocytes # (Auto) 0.9 0-1.3 10 ^3/uL Eosinophils # (Auto) 0.2 0-0.8 10 ^3/uL Basophils # (Auto) 0.2 0-0.2 10 ^3/uL Nucleated Red Blood Cells 0.0 % Sodium Level 139 136-145 mmol/L Potassium Level 4.4 3.5-5.1 mmol/L Chloride Level 106 98-107 mmol/L Carbon Dioxide Level 25 20-31 mmol/L Anion Gap 8 5-15 Blood Urea Nitrogen 13 9-23 mg/dL Creatinine 0.97 0.700-1.30 mg/dL Glomerular Filtration Rate Calc 89 >90 mL/min BUN/Creatinine Ratio 13.4 10.0-20.0 Serum Glucose 123 H 74-106 mg/dL Calcium Level 9.0 8.7-10.4 mg/dL Urine Color Red H Yellow Urine Clarity Ex.turbid Clear Urine pH 7.0 5.0-9.0 Urine Specific [place] 1.023 1.001-1.035 Urine Protein 3+ H Negative Urine Ketones Negative Negative Urine Blood 3+ H Negative /uL Urine Nitrite Negative Negative Urine Bilirubin Negative Negative Urine Urobilinogen Normal Negative mg/dL Urine Leukocyte Esterase 2+ Negative /uL Urine RBC 9611 0 - 3 /hpf Urine Microscopic WBC 290 H 0-3 /HPF Urine Squamous Epithelial Cells None seen <5 /hpf Urine Bacteria None seen None Seen /hpf Urine Glucose Trace Normal mg/dL Assessment/Plan Assessment/Plan Assessment Acute cystitis Hematuria Diabetes mellitus Hypertension BPH Morbid obesity Plan Admit the patient to [facility] to the hospitalist Urology consultation Rocephin Pain management Resume home medications Continue treatment per orders. Plan discussed with: Patient My Orders Orders - JAZMÍN SOTOMAYOR AGACNP Procedure Category Date Status Time Urine Bacterial BINA 04/11/25 In Process Culture 03:01 * Urology Consult CONS 04/11/25 Transmitted 03:01 Lisinopril Tablet PHA 04/11/25 In Process (Zestril Tablet) 10:00 Atorvastatin (Lipitor) PHA 04/11/25 In Process 22:00 Tamsulosin PHA 04/11/25 In Process Hydrochloride (Flomax) 18:00 Basic Metabolic Panel LAB 04/12/25 Verified 04:00 Glucose Blood PHA 04/11/25 In Process (Accu-Chek Comfort 07:00 Insulin R (Human) PHA 04/11/25 In Process (Insulin R) 07:00 Dextrose 50% Syringe PHA 04/11/25 In Process 03:15 Admit ADMIT 04/11/25 Transmitted 03:01 Hydrocodone-Acet PHA 04/11/25 In Process 5/325mg Tab (Pride 03:15 Ondansetron Hcl PHA 04/11/25 In Process (Zofran) 03:15 Complete Blood Count LAB 04/12/25 Verified 04:00 Cardiac DIET 04/11/25 Transmitted Diet-2gna,Lofat,Lochol Breakfast Condition: Stable JOSÉ MIGUEL 04/11/25 In Process 03:01 Acetaminophen Tablet PHA 04/11/25 In Process (Tylenol Tablet) 03:15 Bedrest With Bathroom JOSÉ MIGUEL 04/11/25 In Process Privileg 03:01 Type And Screen BBK 04/11/25 In Process 03:01 Date of Service: Apr 11, 2025 Billing Provider: JAZMÍN SOTOMAYOR Common Visit Codes: [id number] INP/OBS CARE (HIGH) JAZMÍN SOTOMAYOR Apr 11, 2025 04:57
[2025-04-11] MEDS: InsuLIN REG 1unit/0.01ml Soln (100units/ml) SC SCH ×2 (06:19→17:00)
[2025-04-11] MEDS: ACCU-CHEK COMFORT CURVE STRIP VI SCH ×2 (06:19→17:02)
[2025-04-11] MEDS: LISINOPRIL 20 MG TAB PO SCH (10:08)
[2025-04-11] MEDS: cefTRIAXone 1GM/50ML D5W 50 ML IV SCH (10:09)
[2025-04-11 10:35] LABS: Sodium Urine 167 mmol/L (40-220)
[2025-04-11 10:43] LABS: Amphetamine Screen, Urine Neg (NEGATIVE); Barbiturate Scree,Urine Neg (NEGATIVE); Benzodiazephine Screen, Urine Neg (NEGATIVE); Cannabinoid Screen, Urine Neg (NEGATIVE); Cocaine Screen, Urine Neg (NEGATIVE); Opiate Scree,Urine Neg (NEGATIVE); Phencyclidine Screen, Urine Neg (NEGATIVE)
[2025-04-11 10:46] LABS: Creatinine, Urine 124.09 mg/dL (30.0-125.0)
[2025-04-11 10:49] LABS: Urine Protein/Creatinine Ratio 7.83
[2025-04-11 10:55] LABS: Protein, Urine 971.5 mg/dL (1-14)
[2025-04-11] MEDS: SODIUM CHLORIDE 0.9% 1,000 ML IV SCH (11:06)
--- NOTE | 2025-04-11 11:53 | DVHINCON2 ---
Date of service: Apr 11, 2025 Referring Physician hospitalist Reason for Consultation hematuria History of Present Illness History Source: Patient, RN Notes, MD Notes, Old Records Exam Limitations: No limitations HPI 59 yo obese male with hx of kidney stones c/o gross hematuria that started yesterday and has now resolved. He denies pain. Denies urinary complaints. Home Meds Reported Medications Hydrochlorothiazide W/Triamter (Triamterene/Hydrochloroth) 1 Tab Tab, 1 TAB PO DAILY, TAB 08/24/15 Lisinopril (Lisinopril) 40 Mg Tab, 40 MG PO DAILY for me, TAB 08/24/15 Atorvastatin Calcium (ATORVASTATIN CALCIUM) 10 Mg Tab, 10 MG PO HS, TAB 08/24/15 Discontinued Reported Medications Aspirin (Aspir-81) 81 Mg Tab, 81 MG PO DAILY, TAB 08/24/15 Metformin Hydrochloride (Metformin Hcl) 500 Mg Tab, 500 MG PO BID, TAB 08/24/15 Past Medical History Renal/: Hematuria, Other (kidney stones) Patient Family History: Hypertension G8 MOTHER Review of Systems Genitourinary: Hematuria H&P Exam Vital Signs Vital Signs Date Time Temp Pulse Resp B/P (MAP) Pulse Ox O2 Delivery O2 Flow Rate FiO2 04/11/25 10:08 149/75 04/11/25 08:50 99.3 100 18 95 99.3 04/11/25 05:47 Room Air* 0 21 General Appeara: Well developed, Well nourished, Normal Appearance, Obese Neuro/Mental St: Alert, Oriented Appearance: Appropriate appearance, Appropriate insight Eye contact/ Speech: Cooperative, Good eye contact, Normal speech Lymphatic: Normal inspection Labs/Xrays [place] [address] Ph: [phone] DIAGNOSTIC IMAGING Diagnostic Imaging Report : [id number] Signed PATIENT: GILDA MOHAN ACCT: [id number] UNIT: [id number] : 1965 LOC: ER ROOM / BED: / AGE / SEX: 59 / M ADM STATUS: REG ER SERVICE 0122 ORDERING PHYSICIAN: MALLORY LOCKE MD PROCEDURE(s): ABPL - CT AB PEL WO CON-NO ORAL OR IV REASON: hematuria ORDER NUMBER(s): [id number], ACCESSION NUMBER(s): [id number] Exam: CT CT AB PEL WO CON-NO ORAL OR IV History: hematuria Comparison Study: CT CT AB PEL WO CON-NO ORAL OR IV on DOS: 01/24/23 Technique: Multidetector spiral CT of the abdomen was performed from lung bases to pubic symphysis. Imaging was performed without IV contrast. Axial, coronal and sagittal multiplanar reformats were obtained from the axial data set by the technologist. Radiation Dose : 1. Abdomen/Pelvis: CTDIvol 27.88 mGy, DLP 1560.67 mGy*cm. Findings: Evaluation of solid organs is limited due to lack of intravenous contrast use. Lung Bases: No acute or significant lung base finding. Normal heart size. No pleural or pericardial effusion. Liver: The liver is normal in size. Benign-appearing hepatic cysts measure up to 2.7 cm. No focal lesions. Gallbladder and Biliary Tree: Status post cholecystectomy. Spleen: Unremarkable Pancreas: The pancreas is grossly normal in appearance. Adrenal Glands: Unremarkable Kidneys: Right interpolar nonobstructing pelvocaliceal calculus measures approximately 5 mm. Kidneys are otherwise grossly normal without hydronephrosis. Bladder: Grossly unremarkable for degree of distention. Bowel: The stomach is grossly normal in appearance. Small bowel and colon are normal in caliber and distribution. The appendix is not visualized; however, no secondary findings of acute appendicitis identified. Ascites: Absent Lymphadenopathy: No mesenteric, retroperitoneal or periportal lymphadenopathy. Abdominal Wall and Mesentery: Unremarkable. Vasculature: The visualized abdominal aorta is normal in size and caliber. Evaluation of abdominal and pelvic vessels is limited due to lack of intravenous contrast. Pelvic Organs: Unremarkable. Bilateral fat containing inguinal hernias. Musculoskeletal: No aggressive focal bony lesions, acute fractures or dislocation. IMPRESSION: 1. No acute abdominal or pelvic findings. 2. Nonobstructive right nephrolithiasis. Radiation optimization: All CT scans at this facility use at least one of these dose optimization techniques: automated exposure control mA and/or kV adjustment per patient size (includes targeted exams where dose is matched to clinical indication) or iterative reconstruction. ATED BY: CESAR NIELSEN MD DICTATED DATE/TIME: 04/11/25 0158 SIGNED BY: CESAR NIELSEN MD SIGNED DATE/TIME: 04/11/25 0158 CC: Labs Test 04/11/25 11:10 04/11/25 02:39 04/11/25 01:46 04/11/25 01:15 Range/Units POC Glucose 167 H 70-106 mg/dl Lactic Acid Level 1.5 0.4-2.0 mmol/L White Blood Count 19.2 H 4.4-10.8 10^3/uL Red Blood Count 5.27 4.5-5.90 10^6/uL Hemoglobin 14.9 13.5-17.5 g/dL Hematocrit 44.7 41.0-53.0 % Mean Corpuscular Volume 84.8 80.0-100.0 fL Mean Corpuscular Hemoglobin 28.3 28.0-32.0 pg Mean Corpuscular Hemoglobin Concent 33.3 32.0-36.0 g/dL Red Cell Distribution Width 15.4 H 11.8-14.3 % Platelet Count 320 140-450 10^3/uL Mean Platelet Volume 8.6 6.9-10.8 fL Neutrophils (%) (Auto) 80.6 H 37.0-80.0 % Lymphocytes (%) (Auto) 12.8 10.0-50.0 % Monocytes (%) (Auto) 4.6 0.0-12.0 % Eosinophils (%) (Auto) 1.2 0.0-7.0 % Basophils (%) (Auto) 0.8 0.0-2.0 % Neutrophils # (Auto) 15.5 H 1.6-8.6 10 ^3/uL Lymphocytes # (Auto) 2.5 0.4-5.4 10 ^3/uL Monocytes # (Auto) 0.9 0-1.3 10 ^3/uL Eosinophils # (Auto) 0.2 0-0.8 10 ^3/uL Basophils # (Auto) 0.2 0-0.2 10 ^3/uL Nucleated Red Blood Cells 0.0 % Sodium Level 139 136-145 mmol/L Potassium Level 4.4 3.5-5.1 mmol/L Chloride Level 106 98-107 mmol/L Carbon Dioxide Level 25 20-31 mmol/L Anion Gap 8 5-15 Blood Urea Nitrogen 13 9-23 mg/dL Creatinine 0.97 0.700-1.30 mg/dL Glomerular Filtration Rate Calc 89 >90 mL/min BUN/Creatinine Ratio 13.4 10.0-20.0 Serum Glucose 123 H 74-106 mg/dL Hemoglobin A1c 6.6 H <5.7 % A1C Calcium Level 9.0 8.7-10.4 mg/dL Vitamin B12 Level 227 211-911 pg/mL Vitamin D 25-Hydroxy 12.0 L 30.0-100 ng/mL Thyroid Stimulating Hormone (TSH) 1.23 0.55-4.78 uIU/mL Urine Color Red H Yellow Urine Clarity Ex.turbid Clear Urine pH 7.0 5.0-9.0 Urine Specific [place] 1.023 1.001-1.035 Urine Protein 3+ H Negative Urine Ketones Negative Negative Urine Blood 3+ H Negative /uL Urine Nitrite Negative Negative Urine Bilirubin Negative Negative Urine Urobilinogen Normal Negative mg/dL Urine Leukocyte Esterase 2+ Negative /uL Urine RBC 9611 0 - 3 /hpf Urine Microscopic WBC 290 H 0-3 /HPF Urine Squamous Epithelial Cells None seen <5 /hpf Urine Bacteria None seen None Seen /hpf Urine Osmolality 820 mOsm/kg Urine Creatinine 124.09 30.0-125.0 mg/dL Urine Protein/Creatinine Ratio 7.83 Urine Sodium 167 40-220 mmol/L Urine Glucose Trace Normal mg/dL Urine Total Protein 971.5 H 1-14 mg/dL Urine Opiates Screen Neg NEGATIVE Urine Fentanyl Screen Neg NEGATIVE Urine Barbiturates Screen Neg NEGATIVE Urine Phencyclidine Screen Neg NEGATIVE Urine Amphetamines Screen Neg NEGATIVE Urine Benzodiazepines Screen Neg NEGATIVE Urine Cocaine Screen Neg NEGATIVE Urine Cannabinoids Screen Neg NEGATIVE Assessment/Plan Problem List: (1) Calculus of kidney (2) Hematuria Plan cleared from urology standpoint outpatient follow up for office cystoscopy Plan discussed with: Patient, Other JOAQUINA NORTON NP Apr 11, 2025 11:53
--- NOTE | 2025-04-11 16:10 | DVHPNRES ---
Progress Note Date Seen: Apr 11, 2025 Resident Creating Document: ROMANA KIRBY RESIDENT Medical Necessity Reason Pt with a Central, PICC or Fol: No Subjective Review of Systems 59 YO male patient with a history of kidney stones, high blood pressure, diabetes, and irritable bowel syndrome, presents with hematuria that began at 7 PM the previous night. This is not his first episode of hematuria, as he reports a history of urinary tract infections, kidney infections, and kidney stones. The patient describes passing large blood clots while urinating in the shower. He attributes this episode to possible dehydration, stating he consumed a lot of coffee, and took diuretic, and tamsulosin for his enlarged prostate on Thursday, without adequate fluid intake. The patient reports that his urine is clearing up after receiving antibiotics and fluids in the hospital. He mentions having his gallbladder removed at this hospital 3 years ago. For his irritable bowel syndrome, he takes Loxamine daily when traveling to manage his stools, but doesn't need it when at home. The patient quit smoking 20 years ago and no longer drinks alcohol due to medication interactions. He denies drug use. CONSTITUTIONAL: Denies weight loss, fever and chills. HEENT: Denies changes in vision and hearing. RESPIRATORY: Denies SOB and cough. CV: Denies palpitations and chest pain. GI: Denies abdominal pain, nausea, vomiting and diarrhea. : Admits hematuria, dysuria and urinary frequency. MSK: Denies myalgia and joint pain. SKIN: Denies rash and pruritus. NEUROLOGICAL: Denies headache Objective vital signs Vital Sign Date Time Temp Pulse Resp B/P (MAP) Pulse Ox O2 Delivery O2 Flow Rate FiO2 04/11/25 12:34 98.5 91 18 162/66 (98) 98.5 04/11/25 08:50 95 04/11/25 05:47 Room Air* 0 21 medications Current Medications Medications Dose Ordered Sig/Gillian Route Start Time Stop Time Status Last Admin Dose Admin Lisinopril 20 mg DAILY PO 04/11/25 10:00 04/11/25 10:08 20 MG Atorvastatin Calcium 10 mg HS PO 04/11/25 22:00 Tamsulosin HCl 0.4 mg QPM PO 04/11/25 18:00 Diagnostic Test (Pha) 1 strip ACHS 04/11/25 07:00 04/11/25 11:10 1 STRIP Insulin Human Regular ACHS SC 04/11/25 07:00 04/11/25 11:16 3 UNITS Dextrose 50 ml UD PRN IV 04/11/25 03:15 Acetaminophen/ Hydrocodone Bitart 1 tab Q4HP PRN PO 04/11/25 03:15 Ondansetron HCl 4 mg Q4HP PRN IV 04/11/25 03:15 Acetaminophen 650 mg Q6HP PRN PO 04/11/25 03:15 Ceftriaxone Sodium 50 ml @ 100 mls/hr DAILY@09 IV 04/11/25 09:36 04/11/25 10:09 100 MLS/HR Sodium Chloride 1,000 ml @ 100 mls/hr Q10H IV 04/11/25 10:15 04/11/25 11:06 100 MLS/HR Examination GENERAL: Not in acute distress. HEENT: EOMI, Moist mucous membranes. No scleral icterus. No cervical lymphadenopathy. LUNGS: Clear to auscultation bilaterally. No accessory muscle use. CARDIOVASCULAR: Regular rate and rhythm. No murmur. No JVD. ABDOMEN: Soft, nontender and nondistended. No palpable masses. EXTREMITIES: No edema. Nontender. SKIN: No rashes or lesions. Warm. NEUROLOGIC: Alert and oriented X3 laboratory and microbiology Laboratory Tests 04/11/25 01:46 Test 04/11/25 01:46 Range/Units Serum Glucose 123 H 74-106 mg/dL Problem List/Assessment/Plan Problem List/Assessment/Plan # Sepsis due to UTI # Gross Hematuria with Dysuria - WBC was 19.2, tachycardia heart rate was 106, temperature was low 96.1. Urinalysis shows UTI - ordered blood culture, urine culture - Continue I/V Rocephin - Administer IV fluids: NS 100 mL/hr - Urology consult requested - Continue to monitor urine output and hematuria # Rt Kidney Stones without obstruction - CT abdomen shows right nephrolithiasis without obstruction - urology consult # Hypertension -continue antihypertensive medication - monitor BP # Diabetes Mellitus Type 2 - hemoglobin A1c : 6.6 - continue insulin sliding scale - monitor blood glucose level # Irritable Bowel Syndrome (IBS) - counseled about r stress management techniques # Benign Prostatic Hyperplasia (BPH) - Continue tamsulosin (dosage not specified) - follow up with urologist Goal of care discussed with patient for 27 minutes: Full code Plan discussed with Dr. Galarza Plan discussed with: Patient My Orders My Orders Orders - ROMANA KIRBY RESIDENT Procedure Category Date Status Time Ceftriaxone 1gm/50ml PHA 04/11/25 In Process D5w (Rocephin) 09:36 Sodium Chloride 0.9% PHA 04/11/25 In Process 10:15 ROMANA KIRBY RESIDENT Apr 11, 2025 16:10
[2025-04-11] MEDS: TAMSULOSIN HYDROCHLORIDE 0.4 MG CAP PO SCH (17:47)
[2025-04-11] MEDS: ATORVASTATIN 20 MG TAB PO SCH (22:14)
[2025-04-12] VITALS (8 sets, daily range): BP systolic 104–141; BP diastolic 56–72; PULSE 74–85; RESP 16–20; TEMP 97.6–98.4; O2SAT 94–98
[2025-04-12 06:32] LABS: Basophils # (auto) 0.1 10 ^3/uL (0-0.2); Basophils % (auto) 0.8 % (0.0-2.0); Eosinophils # (auto) 0.2 10 ^3/uL (0-0.8); Eosinophils % (auto) 0.9 % (0.0-7.0); Hematocrit 40.6 % (41.0-53.0); Hemoglobin 13.6 g/dL (13.5-17.5); Lymphocytes # (auto) 2.7 10 ^3/uL (0.4-5.4); Lymphocytes % (auto) 15.7 % (10.0-50.0); Mean Corpuscular Hemoglobin 28.3 pg (28.0-32.0); Mean Corpuscular Hgb Conc. 33.4 g/dL (32.0-36.0); Mean Corpuscular Volume 84.7 fL (80.0-100.0); Monocytes # (auto) 1.2 10 ^3/uL (0-1.3); Monocytes % (auto) 6.9 % (0.0-12.0); Neutrophils # (auto) 13.1 10 ^3/uL (1.6-8.6); Neutrophils % (auto) 75.7 % (37.0-80.0); Nucleated Red Blood Cells % 0.1 %; Platelet Count (auto) 231 10^3/uL (140-450); Red Cell Distribution Width 14.8 % (11.8-14.3); White Blood Cell 17.3 10^3/uL (4.4-10.8)
[2025-04-12 06:43] LABS: Potassium 3.8 mmol/L (3.5-5.1); Sodium 138 mmol/L (136-145)
[2025-04-12 06:44] LABS: Anion Gap 8 (5-15); Carbon Dioxide 23 mmol/L (20-31)
[2025-04-12 06:45] LABS: Calcium 8.8 mg/dL (8.7-10.4); Chloride 107 mmol/L (98-107)
[2025-04-12 06:49] LABS: BUN/Creatinine Ratio 13.3 (10.0-20.0); Blood Urea Nitrogen 10 mg/dL (9-23)
[2025-04-12 06:50] LABS: Glucose 122 mg/dL (74-106)
[2025-04-12 08:07] LABS: PSA Free 2.87 ng/mL; Prostate Specific Antigen 7.4 ng/mL (0.0-4.0)
--- NOTE | 2025-04-12 13:49 | DVHPNRES ---
Progress Note Date Seen: Apr 12, 2025 Resident Creating Document: ROMANA KIRBY RESIDENT Medical Necessity Reason Pt with a Central, PICC or Fol: No Subjective Review of Systems Patient seen and examined at bedside, feeling better, still have some signs and symptoms of UTI like frequency of urination, and burning of urination. Objective vital signs Vital Sign Date Time Temp Pulse Resp B/P (MAP) Pulse Ox O2 Delivery O2 Flow Rate FiO2 04/12/25 13:09 97.9 78 20 104/56 (72) 94 97.9 04/12/25 08:00 Room Air* 0 21 Total Intake and Output 04/11/25 04/11/25 04/12/25 15:00 23:00 07:00 Intake Total 220 ml 200 ml Balance 220 ml 200 ml medications Current Medications Medications Dose Ordered Sig/Gillian Route Start Time Stop Time Status Last Admin Dose Admin Lisinopril 20 mg DAILY PO 04/11/25 10:00 04/12/25 09:11 20 MG Atorvastatin Calcium 10 mg HS PO 04/11/25 22:00 04/11/25 22:14 10 MG Tamsulosin HCl 0.4 mg QPM PO 04/11/25 18:00 04/11/25 17:47 0.4 MG Acetaminophen/ Hydrocodone Bitart 1 tab Q4HP PRN PO 04/11/25 03:15 Ondansetron HCl 4 mg Q4HP PRN IV 04/11/25 03:15 Acetaminophen 650 mg Q6HP PRN PO 04/11/25 03:15 Ceftriaxone Sodium 50 ml @ 100 mls/hr DAILY@09 IV 04/11/25 09:36 04/12/25 09:11 100 MLS/HR Sodium Chloride 1,000 ml @ 100 mls/hr Q10H IV 04/11/25 10:15 04/11/25 11:06 100 MLS/HR Diagnostic Test (Pha) 1 strip ACHS 04/11/25 17:00 04/12/25 11:46 1 STRIP Insulin Human Regular ACHS SC 04/11/25 17:00 Dextrose 50 ml UD PRN IV 04/11/25 16:45 Examination GENERAL: Not in acute distress. HEENT: EOMI, Moist mucous membranes. No scleral icterus. No cervical lymphadenopathy. LUNGS: Clear to auscultation bilaterally. No accessory muscle use. CARDIOVASCULAR: Regular rate and rhythm. No murmur. No JVD. ABDOMEN: Soft, nontender and nondistended. No palpable masses. EXTREMITIES: No edema. Nontender. SKIN: No rashes or lesions. Warm. NEUROLOGIC: Alert and oriented X3 laboratory and microbiology Laboratory Tests 04/12/25 06:18 Test 04/12/25 06:18 Range/Units Serum Glucose 122 H 74-106 mg/dL Microbiology Date/Time Source Procedure Growth Status 04/11/25 02:39 Blood Blood Culture - Preliminary NO GROWTH AFTER 24 HOURS OF INCUBATION. Resulted 04/11/25 01:15 Voided Urine Urine Culture - Preliminary Resulted Problem List/Assessment/Plan Problem List/Assessment/Plan # Sepsis due to UTI # Gross Hematuria with Dysuria - WBC was 19.2, tachycardia heart rate was 106, temperature was low 96.1. Urinalysis shows UTI - ordered blood culture, urine culture - Continue I/V Rocephin - Administer IV fluids: NS 100 mL/hr - Urology consultation appreciated: Recommended outpatient cystoscopy. - Continue to monitor urine output and hematuria # Rt Kidney Stones without obstruction - CT abdomen shows right nephrolithiasis without obstruction - urology consult # Hypertension -continue antihypertensive medication - monitor BP # Diabetes Mellitus Type 2 - hemoglobin A1c : 6.6 - continue insulin sliding scale - monitor blood glucose level # Irritable Bowel Syndrome (IBS) - counseled about r stress management techniques # Benign Prostatic Hyperplasia (BPH) - Continue tamsulosin (dosage not specified) - urology consultation appreciated: Recommend outpatient cystoscopy. - total PSA 7.14 Goal of care discussed with patient for 19 minutes: Full code Plan discussed with Dr. Galarza Plan discussed with: Patient My Orders My Orders Orders - ROMANA KIRBY RESIDENT Procedure Category Date Status Time Glucose Blood PHA 04/11/25 In Process (Accu-Chek Comfort 17:00 Insulin R (Human) PHA 04/11/25 In Process (Insulin R) 17:00 Dextrose 50% Syringe PHA 04/11/25 In Process 16:45 ROMANA KIRBY RESIDENT Apr 12, 2025 13:49
[2025-04-13] VITALS (8 sets, daily range): BP systolic 111–133; BP diastolic 50–73; PULSE 76–80; RESP 17–20; TEMP 98–98.8; O2SAT 93–97
[2025-04-13] MEDS ORDERED: TAMS-35 PO (09:34)
[2025-04-13] MEDS ORDERED: CIPR-173 PO (09:34)
[2025-04-13] MEDS ORDERED: LISI20TA56 PO (09:34)
--- NOTE | 2025-04-13 09:38 | DVHDSRES ---
Discharge Summary Date of Admission Resident Creating Document: ROMANA KIRBY RESIDENT Apr 11, 2025 at 03:01 Date of Discharge: Apr 13, 2025 Admitting Diagnosis Hematuria Labs/Diagnostic Data: Laboratory Results Test 04/13/25 06:00 04/12/25 06:18 04/11/25 13:10 04/11/25 02:39 POC Glucose 107 mg/dl (70-106) White Blood Count 17.3 10^3/uL (4.4-10.8) Red Blood Count 4.80 10^6/uL (4.5-5.90) Hemoglobin 13.6 g/dL (13.5-17.5) Hematocrit 40.6 % (41.0-53.0) Mean Corpuscular Volume 84.7 fL (80.0-100.0) Mean Corpuscular Hemoglobin 28.3 pg (28.0-32.0) Mean Corpuscular Hemoglobin Concent 33.4 g/dL (32.0-36.0) Red Cell Distribution Width 14.8 % (11.8-14.3) Platelet Count 231 10^3/uL (140-450) Mean Platelet Volume 8.5 fL (6.9-10.8) Neutrophils (%) (Auto) 75.7 % (37.0-80.0) Lymphocytes (%) (Auto) 15.7 % (10.0-50.0) Monocytes (%) (Auto) 6.9 % (0.0-12.0) Eosinophils (%) (Auto) 0.9 % (0.0-7.0) Basophils (%) (Auto) 0.8 % (0.0-2.0) Neutrophils # (Auto) 13.1 10 ^3/uL (1.6-8.6) Lymphocytes # (Auto) 2.7 10 ^3/uL (0.4-5.4) Monocytes # (Auto) 1.2 10 ^3/uL (0-1.3) Eosinophils # (Auto) 0.2 10 ^3/uL (0-0.8) Basophils # (Auto) 0.1 10 ^3/uL (0-0.2) Nucleated Red Blood Cells 0.1 % Sodium Level 138 mmol/L (136-145) Potassium Level 3.8 mmol/L (3.5-5.1) Chloride Level 107 mmol/L (98-107) Carbon Dioxide Level 23 mmol/L (20-31) Anion Gap 8 (5-15) Blood Urea Nitrogen 10 mg/dL (9-23) Creatinine 0.75 mg/dL (0.700-1.30) Glomerular Filtration Rate Calc 103 mL/min (>90) BUN/Creatinine Ratio 13.3 (10.0-20.0) Serum Glucose 122 mg/dL (74-106) Calcium Level 8.8 mg/dL (8.7-10.4) Free Prostate Specific Antigen 2.87 ng/mL (N/A) Percent Free Prostate Specific Ag 38.8 % (.) Prostate Specific Antigen Total 7.4 ng/mL (0.0-4.0) Lactic Acid Level 1.5 mmol/L (0.4-2.0) Test 04/11/25 01:46 04/11/25 01:15 Hemoglobin A1c 6.6 % A1C (<5.7) Vitamin B12 Level 227 pg/mL (211-911) Vitamin D 25-Hydroxy 12.0 ng/mL (30.0-100) Thyroid Stimulating Hormone (TSH) 1.23 uIU/mL (0.55-4.78) Urine Color Red (Yellow) Urine Clarity Ex.turbid (Clear) Urine pH 7.0 (5.0-9.0) Urine Specific [place] 1.023 (1.001-1.035) Urine Protein 3+ (Negative) Urine Ketones Negative (Negative) Urine Blood 3+ /uL (Negative) Urine Nitrite Negative (Negative) Urine Bilirubin Negative (Negative) Urine Urobilinogen Normal mg/dL (Negative) Urine Leukocyte Esterase 2+ /uL (Negative) Urine RBC 9611 /hpf (0 - 3) Urine Microscopic WBC 290 /HPF (0-3) Urine Squamous Epithelial Cells None seen /hpf (<5) Urine Bacteria None seen /hpf (None Seen) Urine Osmolality 820 mOsm/kg Urine Creatinine 124.09 mg/dL (30.0-125.0) Urine Protein/Creatinine Ratio 7.83 Urine Sodium 167 mmol/L (40-220) Urine Glucose Trace mg/dL (Normal) Urine Total Protein 971.5 mg/dL (1-14) Urine Opiates Screen Neg (NEGATIVE) Urine Fentanyl Screen Neg (NEGATIVE) Urine Barbiturates Screen Neg (NEGATIVE) Urine Phencyclidine Screen Neg (NEGATIVE) Urine Amphetamines Screen Neg (NEGATIVE) Urine Benzodiazepines Screen Neg (NEGATIVE) Urine Cocaine Screen Neg (NEGATIVE) Urine Cannabinoids Screen Neg (NEGATIVE) Other Laboratory Tests 04/12/25 06:18 Brief Hx & Hospital Course: HPI: 59 YO male patient with a history of kidney stones, high blood pressure, diabetes, and irritable bowel syndrome, presents with hematuria that began at 7 PM the previous night. This is not his first episode of hematuria, as he reports a history of urinary tract infections, kidney infections, and kidney stones. The patient describes passing large blood clots while urinating in the shower. He attributes this episode to possible dehydration, stating he consumed a lot of coffee, and took diuretic, and tamsulosin for his enlarged prostate on Thursday, without adequate fluid intake. The patient reports that his urine is clearing up after receiving antibiotics and fluids in the hospital. He mentions having his gallbladder removed at this hospital 3 years ago. For his irritable bowel syndrome, he takes Loxamine daily when traveling to manage his stools, but doesn't need it when at home. The patient quit smoking 20 years ago and no longer drinks alcohol due to medication interactions. He denies drug use. Condition at Discharge: Stable Final Diagnosis/Problems List # Sepsis due to UTI # Gross Hematuria with Dysuria # Rt Kidney Stones without obstruction # Hypertension # Diabetes Mellitus Type 2 # Irritable Bowel Syndrome (IBS) # Benign Prostatic Hyperplasia (BPH) Discharge Disposition: Home Discharge Instruct/Medications Diet: Consistent carbohydrate Activity: No Restrictions, As Tolerated Follow Up/Referral: See below Medications: See below Care Plan: - ciprofloxacin 500 mg b.i.d. x7 days - discontinue hydrochlorothiazide - start lisinopril 20 mg daily - follow up with urologist Dr. Leo, outpatient for cystoscopy to rule out the cause of hematuria - follow up with PCP in 1 week for Urine culture result. Discharge Statement: "Patient was advised to return to the ER or call 911 if any headaches, dizziness, shortness of breath, chest pain, abdominal pain, bleeding, fevers, or worsening of medical condition. Patient was counseled about treatment plan, medications, possible side effects, patientverbalized understanding. All questions were answered to the best of my ability. This discharge took greater then 30 minutes in planning, reviewing documentation, counseling the patient, and discussing with other team members." ASSESSMENT ASSESSMENT Assessment # Sepsis due to UTI # Gross Hematuria with Dysuria # Rt Kidney Stones without obstruction # Hypertension # Diabetes Mellitus Type 2 # Irritable Bowel Syndrome (IBS) # Benign Prostatic Hyperplasia (BPH) ROMANA KIRBY RESIDENT Apr 13, 2025 09:38
[2025-04-13] MEDS ORDERED: VANCOMYCIN PER PHARMACY 0 MG IV SCH (10:45)
[2025-04-13 10:58] LABS: Basophils # (auto) 0 10 ^3/uL (0-0.2); Basophils % (auto) 0.3 % (0.0-2.0); Eosinophils # (auto) 0.3 10 ^3/uL (0-0.8); Eosinophils % (auto) 2.4 % (0.0-7.0); Hematocrit 40.5 % (41.0-53.0); Hemoglobin 13.4 g/dL (13.5-17.5); Lymphocytes # (auto) 2.4 10 ^3/uL (0.4-5.4); Mean Corpuscular Hgb Conc. 33.2 g/dL (32.0-36.0); Mean Corpuscular Volume 84.5 fL (80.0-100.0); Monocytes # (auto) 0.8 10 ^3/uL (0-1.3); Monocytes % (auto) 7.4 % (0.0-12.0); Neutrophils # (auto) 6.9 10 ^3/uL (1.6-8.6); Neutrophils % (auto) 66.9 % (37.0-80.0); Platelet Count (auto) 257 10^3/uL (140-450); Red Blood Cells 4.79 10^6/uL (4.5-5.90); Red Cell Distribution Width 14.6 % (11.8-14.3); White Blood Cell 10.4 10^3/uL (4.4-10.8)
[2025-04-13 11:03] LABS: Potassium 3.6 mmol/L (3.5-5.1); Sodium 140 mmol/L (136-145)
[2025-04-13 11:04] LABS: Anion Gap 7 (5-15); Carbon Dioxide 24 mmol/L (20-31)
[2025-04-13 11:06] LABS: Chloride 109 mmol/L (98-107)
[2025-04-13 11:09] LABS: BUN/Creatinine Ratio 16.2 (10.0-20.0); Blood Urea Nitrogen 12 mg/dL (9-23); Glucose 123 mg/dL (74-106)
[2025-04-13 12:22] LABS: Urine Bacteria None Seen /hpf (None Seen)
[2025-04-13 12:54] LABS: Urine Blood Negative /uL (Negative); Urine Clarity Clear (Clear); Urine Color Light-Yellow (Yellow); Urine Protein, UAD Negative (Negative); Urine Specific Gravity 1.011 (1.001-1.035); Urine Squamous Epithelial Cell FEW /hpf (<5); Urine Urobilinogen Normal (Negative); Urine WBC 2 /HPF (0-3); Urine pH 6.5 (5.0-9.0)
[2025-04-13] MEDS: VANCOMYCIN 1GM/200ML PM 250 ML IV SCH (13:49)
--- NOTE | 2025-04-13 17:06 | DVHPNRES ---
Progress Note Date Seen: Apr 13, 2025 Resident Creating Document: ROMANA KIRBY RESIDENT Medical Necessity Reason Pt with a Central, PICC or Fol: No Subjective Review of Systems Patient seen and examined at bedside, feeling better, still have some signs and symptoms of UTI like frequency of urination, and burning of urination. Started Vanco and cefepime, Ordered repeat UA. Objective vital signs Vital Sign Date Time Temp Pulse Resp B/P (MAP) Pulse Ox O2 Delivery O2 Flow Rate FiO2 04/13/25 16:46 98.2 80 20 133/64 (87) 96 98.2 04/13/25 08:00 Room Air* 0 21 Total Intake and Output 04/12/25 04/12/25 04/13/25 15:00 23:00 07:00 Intake Total 50 ml 740 ml 1220 ml Output Total 1200 ml Balance 50 ml -460 ml 1220 ml medications Current Medications Medications Dose Ordered Sig/Gillian Route Start Time Stop Time Status Last Admin Dose Admin Lisinopril 20 mg DAILY PO 04/11/25 10:00 04/13/25 08:43 20 MG Atorvastatin Calcium 10 mg HS PO 04/11/25 22:00 04/12/25 21:26 10 MG Tamsulosin HCl 0.4 mg QPM PO 04/11/25 18:00 04/12/25 17:30 0.4 MG Acetaminophen/ Hydrocodone Bitart 1 tab Q4HP PRN PO 04/11/25 03:15 Ondansetron HCl 4 mg Q4HP PRN IV 04/11/25 03:15 Acetaminophen 650 mg Q6HP PRN PO 04/11/25 03:15 Ceftriaxone Sodium 50 ml @ 100 mls/hr DAILY@09 IV 04/11/25 09:36 04/13/25 08:43 100 MLS/HR Sodium Chloride 1,000 ml @ 100 mls/hr Q10H IV 04/11/25 10:15 04/13/25 16:11 100 MLS/HR Diagnostic Test (Pha) 1 strip ACHS 04/11/25 17:00 04/13/25 17:03 1 STRIP Insulin Human Regular ACHS SC 04/11/25 17:00 Dextrose 50 ml UD PRN IV 04/11/25 16:45 Vancomycin HCl 0 ml @ 0 mls/hr UD IV 04/13/25 10:45 Cefepime HCl 50 ml @ 12.5 mls/hr DAILY IV 04/14/25 10:00 UNV Vancomycin HCl 300 ml @ 200 mls/hr Q12H IV 04/14/25 01:00 Examination Examination GENERAL: Not in acute distress. HEENT: EOMI, Moist mucous membranes. No scleral icterus. No cervical lymphadenopathy. LUNGS: Clear to auscultation bilaterally. No accessory muscle use. CARDIOVASCULAR: Regular rate and rhythm. No murmur. No JVD. ABDOMEN: Soft, nontender and nondistended. No palpable masses. EXTREMITIES: No edema. Nontender. SKIN: No rashes or lesions. Warm. NEUROLOGIC: Alert and oriented X3 laboratory and microbiology Laboratory Tests 04/13/25 10:40 Test 04/13/25 10:40 Range/Units Serum Glucose 123 H 74-106 mg/dL Microbiology Date/Time Source Procedure Growth Status 04/11/25 02:39 Blood Blood Culture - Preliminary NO GROWTH AFTER 48 HOURS OF INCUBATION. Resulted 04/11/25 01:15 Voided Urine Urine Culture - Final Complete Problem List/Assessment/Plan Problem List/Assessment/Plan # Sepsis due to UTI # Gross Hematuria with Dysuria # Tachycardia # Leukocytosis - WBC was 19.2, tachycardia heart rate was 106, temperature was low 96.1. Urinalysis shows UTI - ordered blood culture, urine culture - D/C I/V Rocephin - Administer IV fluids: NS 100 mL/hr - Urology consultation appreciated: Recommended outpatient cystoscopy. - Continue to monitor urine output and hematuria - Started Vanco and cefepime, - Ordered repeat UA. # Rt Kidney Stones without obstruction - CT abdomen shows right nephrolithiasis without obstruction - urology consult # Hypertension -continue antihypertensive medication - monitor BP # Diabetes Mellitus Type 2 - hemoglobin A1c : 6.6 - continue insulin sliding scale - monitor blood glucose level # Irritable Bowel Syndrome (IBS) - counseled about r stress management techniques # Benign Prostatic Hyperplasia (BPH) - Continue tamsulosin - urology consultation appreciated: Recommend outpatient cystoscopy. - total PSA 7.14 Goal of care discussed with patient for 23 minutes: Full code Plan discussed with Dr. Galarza Plan discussed with: Patient My Orders My Orders Orders - ROMANA KIRBY RESIDENT Procedure Category Date Status Time Vancomycin Per PHA 04/13/25 In Process Pharmacy 10:45 Cefepime 1gm/ 50ml PHA 04/14/25 Logged (Maxipime 1gm/50ml) 10:00 Urine Bacterial BINA 04/13/25 In Process Culture 11:33 Vancomycin 1.5gm/300ml PHA 04/14/25 In Process 01:00 Vancomycin Per JOSÉ MIGUEL 04/14/25 In Process Pharmacy Protoc 13:00 Creatinine LAB 04/14/25 Verified 04:00 Vancomycin,Trough LAB 04/15/25 Verified 12:00 ROMANA KIRBY RESIDENT Apr 13, 2025 17:06
[2025-04-14 01:00] VITALS: BP 140/86; PULSE 73; RESP 19; TEMP 96.8; O2SAT 97
[2025-04-14] MEDS: VANCOMYCIN 1.5GM/300ML 300 ML IV SCH (01:07)
[2025-04-14 05:12] VITALS: BP 122/53; PULSE 73; RESP 20; TEMP 97; O2SAT 96
[2025-04-14 07:23] LABS: Basophils # (auto) 0.1 10 ^3/uL (0-0.2); Basophils % (auto) 0.6 % (0.0-2.0); Eosinophils # (auto) 0.2 10 ^3/uL (0-0.8); Eosinophils % (auto) 2.2 % (0.0-7.0); Hemoglobin 14.3 g/dL (13.5-17.5); Lymphocytes # (auto) 2.4 10 ^3/uL (0.4-5.4); Lymphocytes % (auto) 24.3 % (10.0-50.0); Mean Corpuscular Hemoglobin 28.3 pg (28.0-32.0); Mean Corpuscular Hgb Conc. 33.2 g/dL (32.0-36.0); Mean Corpuscular Volume 85.2 fL (80.0-100.0); Monocytes # (auto) 0.7 10 ^3/uL (0-1.3); Monocytes % (auto) 7.4 % (0.0-12.0); Neutrophils # (auto) 6.3 10 ^3/uL (1.6-8.6); Neutrophils % (auto) 65.5 % (37.0-80.0); Nucleated Red Blood Cells % 0.1 %; Platelet Count (auto) 279 10^3/uL (140-450); Red Blood Cells 5.05 10^6/uL (4.5-5.90); Red Cell Distribution Width 14.9 % (11.8-14.3); White Blood Cell 9.7 10^3/uL (4.4-10.8)
[2025-04-14 07:29] LABS: Potassium 3.9 mmol/L (3.5-5.1); Sodium 140 mmol/L (136-145)
[2025-04-14 07:30] LABS: Anion Gap 9 (5-15); Calcium 9.4 mg/dL (8.7-10.4); Carbon Dioxide 21 mmol/L (20-31)
[2025-04-14 07:35] LABS: BUN/Creatinine Ratio 12.8 (10.0-20.0); Blood Urea Nitrogen 10 mg/dL (9-23); Glucose 94 mg/dL (74-106)
[2025-04-14 07:38] LABS: Chloride 110 mmol/L (98-107)
[2025-04-14 08:30] VITALS: PULSE 76; RESP 18
[2025-04-14 08:36] VITALS: BP 157/81; PULSE 76; RESP 18; TEMP 98.1; O2SAT 96
[2025-04-14] MEDS: CEFEPIME 1GM/ 50ML 50 ML IV SCH (09:31)
[2025-04-14] MEDS ORDERED: CIPR-173 PO (12:25)
--- NOTE | 2025-04-14 14:32 | DVHDSRES ---
Discharge Summary Date of Admission Resident Creating Document: ROMANA KIRBY RESIDENT Apr 11, 2025 at 03:01 Date of Discharge: Apr 13, 2025 Admitting Diagnosis Hematuria Labs/Diagnostic Data: Laboratory Results Test 04/14/25 10:46 04/14/25 07:06 04/13/25 11:00 04/11/25 13:10 POC Glucose 105 mg/dl (70-106) White Blood Count 9.7 10^3/uL (4.4-10.8) Red Blood Count 5.05 10^6/uL (4.5-5.90) Hemoglobin 14.3 g/dL (13.5-17.5) Hematocrit 43.0 % (41.0-53.0) Mean Corpuscular Volume 85.2 fL (80.0-100.0) Mean Corpuscular Hemoglobin 28.3 pg (28.0-32.0) Mean Corpuscular Hemoglobin Concent 33.2 g/dL (32.0-36.0) Red Cell Distribution Width 14.9 % (11.8-14.3) Platelet Count 279 10^3/uL (140-450) Mean Platelet Volume 8.4 fL (6.9-10.8) Neutrophils (%) (Auto) 65.5 % (37.0-80.0) Lymphocytes (%) (Auto) 24.3 % (10.0-50.0) Monocytes (%) (Auto) 7.4 % (0.0-12.0) Eosinophils (%) (Auto) 2.2 % (0.0-7.0) Basophils (%) (Auto) 0.6 % (0.0-2.0) Neutrophils # (Auto) 6.3 10 ^3/uL (1.6-8.6) Lymphocytes # (Auto) 2.4 10 ^3/uL (0.4-5.4) Monocytes # (Auto) 0.7 10 ^3/uL (0-1.3) Eosinophils # (Auto) 0.2 10 ^3/uL (0-0.8) Basophils # (Auto) 0.1 10 ^3/uL (0-0.2) Nucleated Red Blood Cells 0.1 % Sodium Level 140 mmol/L (136-145) Potassium Level 3.9 mmol/L (3.5-5.1) Chloride Level 110 mmol/L (98-107) Carbon Dioxide Level 21 mmol/L (20-31) Anion Gap 9 (5-15) Blood Urea Nitrogen 10 mg/dL (9-23) Creatinine 0.78 mg/dL (0.700-1.30) Glomerular Filtration Rate Calc 101 mL/min (>90) BUN/Creatinine Ratio 12.8 (10.0-20.0) Serum Glucose 94 mg/dL (74-106) Calcium Level 9.4 mg/dL (8.7-10.4) Urine Color Light-yellow (Yellow) Urine Clarity Clear (Clear) Urine pH 6.5 (5.0-9.0) Urine Specific [place] 1.011 (1.001-1.035) Urine Protein Negative (Negative) Urine Ketones Negative (Negative) Urine Blood Negative /uL (Negative) Urine Nitrite Negative (Negative) Urine Bilirubin Negative (Negative) Urine Urobilinogen Normal mg/dL (Negative) Urine Leukocyte Esterase Negative /uL (Negative) Urine RBC 2 /hpf (0 - 3) Urine Microscopic WBC 2 /HPF (0-3) Urine Squamous Epithelial Cells Few /hpf (<5) Urine Bacteria None seen /hpf (None Seen) Urine Glucose Normal mg/dL (Normal) Free Prostate Specific Antigen 2.87 ng/mL (N/A) Percent Free Prostate Specific Ag 38.8 % (.) Prostate Specific Antigen Total 7.4 ng/mL (0.0-4.0) Test 04/11/25 02:39 04/11/25 01:46 04/11/25 01:15 Lactic Acid Level 1.5 mmol/L (0.4-2.0) Hemoglobin A1c 6.6 % A1C (<5.7) Vitamin B12 Level 227 pg/mL (211-911) Vitamin D 25-Hydroxy 12.0 ng/mL (30.0-100) Thyroid Stimulating Hormone (TSH) 1.23 uIU/mL (0.55-4.78) Urine Osmolality 820 mOsm/kg Urine Creatinine 124.09 mg/dL (30.0-125.0) Urine Protein/Creatinine Ratio 7.83 Urine Sodium 167 mmol/L (40-220) Urine Total Protein 971.5 mg/dL (1-14) Urine Opiates Screen Neg (NEGATIVE) Urine Fentanyl Screen Neg (NEGATIVE) Urine Barbiturates Screen Neg (NEGATIVE) Urine Phencyclidine Screen Neg (NEGATIVE) Urine Amphetamines Screen Neg (NEGATIVE) Urine Benzodiazepines Screen Neg (NEGATIVE) Urine Cocaine Screen Neg (NEGATIVE) Urine Cannabinoids Screen Neg (NEGATIVE) Other Laboratory Tests 04/14/25 07:06 Brief Hx & Hospital Course: HPI: 59 YO male patient with a history of kidney stones, high blood pressure, diabetes, and irritable bowel syndrome, presents with hematuria that began at 7 PM the previous night. This is not his first episode of hematuria, as he reports a history of urinary tract infections, kidney infections, and kidney stones. The patient describes passing large blood clots while urinating in the shower. He attributes this episode to possible dehydration, stating he consumed a lot of coffee, and took diuretic, and tamsulosin for his enlarged prostate on Thursday, without adequate fluid intake. The patient reports that his urine is clearing up after receiving antibiotics and fluids in the hospital. He mentions having his gallbladder removed at this hospital 3 years ago. For his irritable bowel syndrome, he takes Loxamine daily when traveling to manage his stools, but doesn't need it when at home. The patient quit smoking 20 years ago and no longer drinks alcohol due to medication interactions. He denies drug use. Summary: Patient was diagnosed with completed UTI and started Rocephin, blood cultures negative, urine culture shows contaminated more than three colony, patient's WBC was elevated, adjusted antibiotic to cefepime and vancomycin, CT also shows patient has right nephrolithiasis without obstruction, urology was consulted and recommended outpatient cystoscopy. Patient's hematuria resolved, no signs symptoms of UTI today. Patient is going to home with ciprofloxacin 500 mg b.i.d. x7 days. Advised patient follow up with PCP for urine culture result. Recommended patient follow up with outpatient Urology for cystoscopy. Condition at Discharge: Stable Final Diagnosis/Problems List # Sepsis due to UTI # Gross Hematuria with Dysuria # Rt Kidney Stones without obstruction # Hypertension # Diabetes Mellitus Type 2 # Irritable Bowel Syndrome (IBS) # Benign Prostatic Hyperplasia (BPH) Discharge Disposition: Home SNF Discharge Will this Physician continue t: No Discharge Instruct/Medications Diet: Consistent carbohydrate Activity: No Restrictions, As Tolerated Follow Up/Referral: See below Medications: See below Care Plan: - ciprofloxacin 500 mg b.i.d. x7 days - discontinue hydrochlorothiazide - start lisinopril 20 mg daily - follow up with urologist Dr. Leo, outpatient for cystoscopy to rule out the cause of hematuria - follow up with PCP in 1 week for Urine culture result. Discharge Statement: "Patient was advised to return to the ER or call 911 if any headaches, dizziness, shortness of breath, chest pain, abdominal pain, bleeding, fevers, or worsening of medical condition. Patient was counseled about treatment plan, medications, possible side effects, patientverbalized understanding. All questions were answered to the best of my ability. This discharge took greater then 30 minutes in planning, reviewing documentation, counseling the patient, and discussing with other team members." ASSESSMENT ASSESSMENT Assessment # Sepsis due to UTI # Gross Hematuria with Dysuria # Rt Kidney Stones without obstruction # Hypertension # Diabetes Mellitus Type 2 # Irritable Bowel Syndrome (IBS) # Benign Prostatic Hyperplasia (BPH) ROMANA KIRBY RESIDENT Apr 14, 2025 14:32
== END 2025-04-14 13:30 | disposition home or self-care (01) | DRG 872 ==
LOC: ER 00:47 → OVERFLOW 03:01 → EAST 18:11
PROVIDERS: ADMIT Student in an Organized Health Care Education/Training Program; ATTEND Student in an Organized Health Care Education/Training Program
DX: A41.9 Sepsis, unspecified organism (principal); N30.01 Acute cystitis with hematuria; N10 Acute pyelonephritis; Z68.43 Body mass index [BMI] 50.0-59.9, adult; E11.9 Type 2 diabetes mellitus without complications; E66.01 Morbid (severe) obesity due to excess calories; I10 Essential (primary) hypertension; N40.0 Benign prostatic hyperplasia without lower urinary tract symptoms; N20.0 Calculus of kidney; Z87.442 Personal history of urinary calculi; Z87.440 Personal history of urinary (tract) infections; Z79.84 Long term (current) use of oral hypoglycemic drugs; Z79.899 Other long term (current) drug therapy; Z90.49 Acquired absence of other specified parts of digestive tract; K58.9 Irritable bowel syndrome, unspecified
CPT/HCPCS: 36415; 74176; 80048; 80307; 81001; 82306; 82570; 82607; 82962; 83036; 83605; 83935; 84154; 84156; 84300; 84443; 85025; 86850; 86900; 86901; 87040; 87086; 96365; G0378; J0692; J1815